=== PATIENT | female | born 1995 | race Caucasian/White ===

== ENCOUNTER 2016-08-19 17:11 | Emergency (ER) | payer OTHER ==
[~2016-08-19] VITALS: Ht 160 cm; Wt 95.7 kg
[~2016-08-19 17:11] MED LIST: ALLERGY MED PO; AMOXICILLIN500 MG PO; AMOXIL500 MG PO; ANUSOL-HC25 MG R; BACTRIM DS 8001 TA1 PO; BIRTH CONTROL1 EAC1 PO; BROMPHENIRAMIN118 M1 PO; CETIRIZINE HYDR10 MG PO; CHLORASEPTIC SP20 M1 PO; CLEOCIN150 MG PO; COLACE100 MG PO; DIFLUCAN150 MG PO; FLUTICASON0.05 MG/AC NAS; HEMORRHOIDAL RC; HYDROCODONE BIT1 T11 PO; IRON325 M1 PO; LORTAB 480 ML480 ML; MOBIC7.5 MG PO; MONISTAT 7 CREA45 GM PO; MOTRIN400 MG PO; MOTRIN600 MG PO; MOTRIN800 MG PO; Motrin,Rufen800 MG PO; NAPROSYN500 MG PO; NKHM; PEN-VEE K500 MG PO; PREDNICOT20 MG PO; PROTONIX40 MG PO; TYLENOL500 MG PO; ZOFRAN ODT4 MG PO; ZOFRAN ODT4 MG SL; Zofran4 MG PO
[2016-08-19] MEDS ORDERED: OMEPRAZOLE MAGN20 MG PO (17:24)
[2016-08-19 18:02] LABS: BASO % 0.3 % (0.0-1.0); EOS # 0.1 10*3/uL (0.0-0.4); EOS % 1.9 % (1.0-4.0); HEMATOCRIT 40.7 % (37.0-47.0); HEMOGLOBIN 13.6 g/dl (12.0-16.0); LYMPH # 2.2 10*3/uL (1.3-4.4); LYMPH % 32.2 % (27.0-41.0); MEAN CELL VOLUME 83.7 fl (81.0-99.0); MEAN CORPUSCULAR HGB CONC 33.4 g/dl (33.0-37.0); MEAN PLATELET VOLUME 9.1 fl (9.6-12.3); MONO # 0.4 10*3/uL (0.1-1.0); MONO % 6.2 % (3.0-9.0); NEUT % 59.1 % (47.0-73.0); PLATELET COUNT AUTOMATED 273 10*3/uL (130-400); RED BLOOD COUNT 4.86 10*6/uL (4.10-5.10); RED CELL DISTRI WIDTH 12.9 % (0-14.5); WHITE BLOOD COUNT 6.8 10*3/uL (4.8-10.8)
[2016-08-19 18:18] LABS: ALBUMIN 3.5 gm/dl (3.1-4.5); ALKALINE PHOSPHATASE 63 U/L (45-117); BILIRUBIN, TOTAL 0.5 mg/dl (0.2-1.0); BUN 12 mg/dl (7-24); CARBON DIOXIDE 28 mmol/L (21-32); CHLORIDE 104 mmol/L (98-107); EST GLOM FILT AFRICAN AMERICAN > 60 ml/min; GLUCOSE 86 mg/dL (65-99); POTASSIUM 4.4 mmol/L (3.5-5.1); SGOT/AST 11 IU/L (3-35); SGPT/ALT 20 U/L (12-78); SODIUM 142 mmol/L (136-145); TOTAL PROTEIN 6.4 gm/dL (6.4-8.2)
[2016-08-19 18:32] LABS: BILIRUBIN NEGATIVE (NEGATIVE); BLOOD NEGATIVE (NEGATIVE); CLARITY CLEAR (CLEAR); COLOR YELLOW (YELLOW); GLUCOSE NEGATIVE (NEGATIVE); KETONE NEGATIVE (NEGATIVE); LEUKO ESTERASE NEGATIVE (NEGATIVE); NITRITE NEGATIVE (NEGATIVE); PROTEIN NEGATIVE (NEGATIVE); SPECIFIC GRAVITY 1.015 (1.005-1.030); UROBILINOGEN 0.2 E.U./dl (0.2-1.0)
[2016-08-19 18:39] LABS: BACTERIA TRACE; EPITHELIAL CELLS TNTC; URINE REFLEX COMMENT NO (NO)
[2016-08-19] MEDS ORDERED: ZOFRAN ODT4 MG SL (19:10)
[2016-08-19] MEDS ORDERED: BENTYL10 MG PO (19:10)
== END 2016-08-19 19:18 | disposition home or self-care (01) ==
LOC: ED 17:11
PROVIDERS: Physician Assistant
DX: K21.9 Gastro-esophageal reflux disease without esophagitis (principal); R11.0 Nausea

== ENCOUNTER 2017-03-11 11:02 | Emergency (ER) | payer OTHER ==
[~2017-03-11] VITALS: Ht 160 cm; Wt 89.8 kg
[~2017-03-11 11:02] MED LIST changes: +BENTYL10 MG PO; +OMEPRAZOLE MAGN20 MG PO
[2017-03-11 11:28] VITALS: BP 142/107
[2017-03-11 11:47] LABS: BILIRUBIN 1+ (NEGATIVE); BLOOD NEGATIVE (NEGATIVE); CLARITY CLOUDY (CLEAR); COLOR YELLOW (YELLOW); GLUCOSE NEGATIVE (NEGATIVE); KETONE NEGATIVE (NEGATIVE); LEUKO ESTERASE 1+ (NEGATIVE); NITRITE NEGATIVE (NEGATIVE); SPECIFIC GRAVITY 1.015 (1.005-1.030); UROBILINOGEN 0.2 E.U./dl (0.2-1.0)
[2017-03-11 11:52] LABS: HEMOGLOBIN 14.8 g/dl (12.0-16.0); MEAN CELL VOLUME 82.9 fl (81.0-99.0); MEAN CORPUSCULAR HGB 27.9 pg (27.0-31.0); MEAN CORPUSCULAR HGB CONC 33.6 g/dl (33.0-37.0); MEAN PLATELET VOLUME 9.4 fl (9.6-12.3); PLATELET COUNT AUTOMATED 207 10*3/uL (130-400); RED BLOOD COUNT 5.31 10*6/uL (4.10-5.10); RED CELL DISTRI WIDTH 13.5 % (0-14.5)
[2017-03-11 12:00] LABS: EPITHELIAL CELLS 31-40
[2017-03-11 12:01] LABS: BACTERIA TRACE
[2017-03-11 12:06] LABS: ALBUMIN 3.4 gm/dl (3.1-4.5); ALKALINE PHOSPHATASE 83 U/L (45-117); BUN 17 mg/dl (7-24); CHLORIDE 105 mmol/L (98-107); CREATININE 1.01 mg/dL (0.55-1.02); LIPASE 120 U/L (73-393); POTASSIUM 3.9 mmol/L (3.5-5.1); SGOT/AST 19 IU/L (3-35); SGPT/ALT 24 U/L (12-78); SODIUM 138 mmol/L (136-145)
[2017-03-11 12:09] LABS: TOTAL CELLS COUNTED 100 #CELLS
[2017-03-11 12:10] LABS: PLATELET SUFFICIENCY NORMAL (NORMAL)
[2017-03-11] MEDS ORDERED: ZOFRAN ODT4 MG SL (12:53)
[2017-03-11] MEDS ORDERED: ANUSOL-HC25 MG R (12:53)
[2017-03-11] MEDS ORDERED: MACROBID100 M1 PO (12:53)
== END 2017-03-11 14:08 | disposition home or self-care (01) ==
LOC: ED 11:02
PROVIDERS: Nurse Practitioner Family
DX: N39.0 Urinary tract infection, site not specified (principal); K52.9 Noninfective gastroenteritis and colitis, unspecified; Z79.899 Other long term (current) drug therapy

== ENCOUNTER 2017-05-28 09:45 | Inpatient (IN) | payer OTHER ==
[~2017-05-28] VITALS: Ht 157.4 cm; Wt 93.6 kg
--- NOTE | ~2017-05-28 | O ---
[place], [place] OPERATIVE NOTE NAME: MADHAV ASENCIO [facility] #: [id number] UNIT #: [id number] ROOM: 411 DOCTOR: ARITS JUAREZ MD BIRTHDATE: [birth year] DOS: 05/29/2017 PREOPERATIVE DIAGNOSIS: Acute cholecystitis. POSTOPERATIVE DIAGNOSIS: Symptomatic gallstones. PROCEDURE: Laparoscopic cholecystectomy. SURGEON: Artis Juarez MD BATTERY STARTER: JOSE EDUARDO. ANESTHESIA: General with endotracheal intubation. INDICATIONS: This is a 21-year-old lady with a history of right upper quadrant pain for the past few days and who had an ultrasound, CAT scan and HIDA scan that revealed possible gallstones as well as acute cholecystitis. It was decided to take the patient to the operating room for the above-mentioned procedure. The procedure and its complications were explained to the patient in detail preoperatively. Complications that were discussed included but were not limited to bleeding, infection, hematoma/seroma/abscess formation, prolonged postoperative pain, damage to underlying vital structures, biloma formation, inadvertent injury to the common bile duct and incisional hernia formation. She agreed to proceed. DESCRIPTION OF PROCEDURE: After identifying the patient, the patient was brought to the operating suite and laid in the supine position. After induction of general anesthesia, the parts were then painted and draped in the usual sterile fashion and a time-out procedure was called. An incision was made below the umbilicus in a transverse fashion. The skin and the subcutaneous tissue were incised in the line of the incision. The fascia was incised and 2 stay sutures with 0 Vicryl were taken on either side. The peritoneum was opened and a 10 mm Stephy port was introduced into the peritoneal cavity. A pneumoperitoneum was created. Under direct vision, an epigastric incision of 10 mm and two 5 mm incisions were made in the right upper quadrant and appropriate size ports were introduced. The gallbladder was retracted superiorly and laterally. The cystic duct and the cystic artery were meticulously dissected until the critical view of safety was obtained and the triangle of Calot was identified. Thereafter, each of these structures were clipped 3 times and cut between the first and the second clip. The gallbladder was then removed from the bed of the gallbladder and placed in an EndoCatch bag and sent for histopathological diagnosis after it was removed from the peritoneal cavity. Hemostasis was achieved in the liver bed with the help of electrocautery and the area was irrigated. After hemostasis was confirmed, the right upper quadrant and epigastric ports were removed and there was no bleeding seen. The umbilical port was also removed and the pneumoperitoneum was decompressed. The 2 stay sutures were tied together and an additional 0 Vicryl stitch was taken in order to approximate the fascia. Local anesthesia (1% plain lidocaine) was injected on all the 4 incisions and they were then approximated with the help of 4-0 Vicryl in a subcuticular running fashion. Dressing was placed. The patient [place], [place] OPERATIVE NOTE NAME: MADHAV ASENCIO UNIT #: [id number] ROOM: 411 DOCTOR: ARTIS JUAREZ MD BIRTHDATE: [birth year] tolerated the procedure well and was extubated uneventfully and brought back to the recovery room in stable fashion. There were no complications. Dr. Artis Juarez, the attending surgeon, was present throughout the operating case. Artis Juarez MD CM:OPRECORD:OPERATIVE NOTE [id number] ARTIS JUAREZ MD 05/29/17 1053 interface
[~2017-05-28 09:45] MED LIST changes: +MACROBID100 M1 PO
[2017-05-28 10:11] VITALS: BP 130/86
[2017-05-28 10:52] LABS: BASO % 0.3 % (0.0-1.0); EOS # 0.1 10*3/uL (0.0-0.4); EOS % 1.5 % (1.0-4.0); HEMATOCRIT 42.5 % (37.0-47.0); HEMOGLOBIN 14.2 g/dl (12.0-16.0); LYMPH # 3.2 10*3/uL (1.3-4.4); LYMPH % 33.5 % (27.0-41.0); MEAN CELL VOLUME 83.7 fl (81.0-99.0); MEAN CORPUSCULAR HGB CONC 33.4 g/dl (33.0-37.0); MEAN PLATELET VOLUME 8.6 fl (9.6-12.3); MONO # 0.5 10*3/uL (0.1-1.0); MONO % 5.7 % (3.0-9.0); NEUT # 5.5 10*3/uL (2.3-7.9); NEUT % 58.8 % (47.0-73.0); PLATELET COUNT AUTOMATED 301 10*3/uL (130-400); RED BLOOD COUNT 5.08 10*6/uL (4.10-5.10); RED CELL DISTRI WIDTH 13.3 % (0-14.5); WHITE BLOOD COUNT 9.4 10*3/uL (4.8-10.8)
[2017-05-28 11:08] LABS: ALBUMIN 3.7 gm/dl (3.1-4.5); ALKALINE PHOSPHATASE 94 U/L (45-117); BUN 16 mg/dl (7-24); CHLORIDE 104 mmol/L (98-107); CREATININE 0.84 mg/dL (0.55-1.02); LIPASE 204 U/L (73-393); POTASSIUM 4.1 mmol/L (3.5-5.1); SGOT/AST 11 IU/L (3-35); SGPT/ALT 22 U/L (12-78); SODIUM 139 mmol/L (136-145); TOTAL PROTEIN 7.3 gm/dL (6.4-8.2)
[2017-05-28 11:14] LABS: BETA-HCG, QUANT < 1.0 mIU/mL (1-3)
[2017-05-28 11:27] LABS: BILIRUBIN NEGATIVE (NEGATIVE); BLOOD NEGATIVE (NEGATIVE); CLARITY CLOUDY (CLEAR); COLOR YELLOW (YELLOW); GLUCOSE NEGATIVE (NEGATIVE); KETONE NEGATIVE (NEGATIVE); LEUKO ESTERASE NEGATIVE (NEGATIVE); NITRITE NEGATIVE (NEGATIVE); SPECIFIC GRAVITY 1.015 (1.005-1.030)
[2017-05-28 11:35] LABS: BACTERIA TRACE; EPITHELIAL CELLS 31-40; MUCOUS 1+
[2017-05-28] MEDS ORDERED: OMEPRAZOLE40 MG PO (13:30)
[2017-05-28] MEDS ORDERED: CITALOPRAM HYDR20 MG PO (13:30)
[2017-05-28] MEDS ORDERED: ZYRTEC10 MG PO (14:09)
[2017-05-28 16:00] VITALS: BP 113/76
[2017-05-28 20:00] VITALS: BP 115/65
[2017-05-29] VITALS (9 sets, daily range): BP systolic 112–142; BP diastolic 57–84
[2017-05-29 07:13] LABS: BASO % 0.3 % (0.0-1.0); EOS # 0.1 10*3/uL (0.0-0.4); HEMATOCRIT 39.6 % (37.0-47.0); HEMOGLOBIN 13.1 g/dl (12.0-16.0); LYMPH # 2.7 10*3/uL (1.3-4.4); LYMPH % 38.6 % (27.0-41.0); MEAN CELL VOLUME 86.3 fl (81.0-99.0); MEAN CORPUSCULAR HGB 28.5 pg (27.0-31.0); MEAN CORPUSCULAR HGB CONC 33.1 g/dl (33.0-37.0); MEAN PLATELET VOLUME 8.7 fl (9.6-12.3); MONO # 0.4 10*3/uL (0.1-1.0); MONO % 5.9 % (3.0-9.0); NEUT # 3.7 10*3/uL (2.3-7.9); NEUT % 53.1 % (47.0-73.0); PLATELET COUNT AUTOMATED 233 10*3/uL (130-400); RED BLOOD COUNT 4.59 10*6/uL (4.10-5.10); RED CELL DISTRI WIDTH 13.3 % (0-14.5); WHITE BLOOD COUNT 6.9 10*3/uL (4.8-10.8)
[2017-05-29 08:11] LABS: ALBUMIN 3.3 gm/dl (3.1-4.5); ALKALINE PHOSPHATASE 79 U/L (45-117); BUN 13 mg/dl (7-24); CHLORIDE 103 mmol/L (98-107); CHOLESTEROL 191 mg/dL (<200); CREATININE 0.69 mg/dL (0.55-1.02); HDL CHOLESTEROL 44 mg/dl (40-60); LDL CHOLESTEROL 119 mg/dL (9-159); POTASSIUM 3.8 mmol/L (3.5-5.1); SGOT/AST 11 IU/L (3-35); SGPT/ALT 18 U/L (12-78); SODIUM 139 mmol/L (136-145); TOTAL PROTEIN 6.6 gm/dL (6.4-8.2); TRIGLYCERIDES 142 mg/dl (<150); VLDL CHOLESTEROL 28 mg/dL (6-40)
[2017-05-29 08:13] LABS: FREE T4 1.07 ng/dl (0.76-1.46)
[2017-05-29 09:43] LABS: VITAMIN D, 25-HYDROXY 26.4 ng/mL (30-100)
== END 2017-05-29 16:08 | disposition home or self-care (01) | DRG 419 ==
LOC: ED 09:45 → 4E 12:56 → EDHOLD 12:56 → 4E 13:15
PROVIDERS: Emergency Medicine; Registered Nurse
PROC: 0FT44ZZ Resection of Gallbladder, Percutaneous Endoscopic Approach (ICD-10-PCS; principal; 2017-05-29)
DX: K80.00 Calculus of gallbladder with acute cholecystitis without obstruction (principal); F32.9 Major depressive disorder, single episode, unspecified; K21.9 Gastro-esophageal reflux disease without esophagitis; Z87.440 Personal history of urinary (tract) infections; Z83.3 Family history of diabetes mellitus; Z82.49 Family history of ischemic heart disease and other diseases of the circulatory system; Z79.899 Other long term (current) drug therapy

== ENCOUNTER 2017-08-10 18:08 | Emergency (ER) | payer OTHER ==
[~2017-08-10] VITALS: Ht 157.4 cm; Wt 95.7 kg
[~2017-08-10 18:08] MED LIST changes: +CITALOPRAM HYDR20 MG PO; +OMEPRAZOLE40 MG PO; +ZYRTEC10 MG PO
[2017-08-10 18:39] LABS: BILIRUBIN NEGATIVE (NEGATIVE); BLOOD 3+ (NEGATIVE); CLARITY CLOUDY (CLEAR); COLOR RED (YELLOW); GLUCOSE NEGATIVE (NEGATIVE); KETONE TRACE (NEGATIVE); LEUKO ESTERASE 2+ (NEGATIVE); NITRITE POSITIVE (NEGATIVE); SPECIFIC GRAVITY 1.025 (1.005-1.030)
[2017-08-10 18:43] LABS: BACTERIA 4+; RBC TNTC rbc/hpf (0-2); WBC TNTC wbc/hpf (0-5)
[2017-08-10 20:25] LABS: BASO % 0.2 % (0.0-1.0); EOS # 0.1 10*3/uL (0.0-0.4); EOS % 1.4 % (1.0-4.0); HEMOGLOBIN 12.8 g/dl (12.0-16.0); LYMPH # 1.5 10*3/uL (1.3-4.4); LYMPH % 22.9 % (27.0-41.0); MEAN CELL VOLUME 83.9 fl (81.0-99.0); MEAN CORPUSCULAR HGB 27.5 pg (27.0-31.0); MEAN CORPUSCULAR HGB CONC 32.8 g/dl (33.0-37.0); MEAN PLATELET VOLUME 9.2 fl (9.6-12.3); MONO # 0.4 10*3/uL (0.1-1.0); MONO % 6.4 % (3.0-9.0); NEUT # 4.5 10*3/uL (2.3-7.9); NEUT % 68.9 % (47.0-73.0); PLATELET COUNT AUTOMATED 172 10*3/uL (130-400); RED BLOOD COUNT 4.65 10*6/uL (4.10-5.10); RED CELL DISTRI WIDTH 13.4 % (0-14.5); WHITE BLOOD COUNT 6.6 10*3/uL (4.8-10.8)
[2017-08-10] MEDS ORDERED: AMINOPHYLLIN200 MG PO (20:33)
[2017-08-10 20:45] LABS: ALBUMIN 3.1 gm/dl (3.1-4.5); ALKALINE PHOSPHATASE 65 U/L (45-117); BUN 10 mg/dl (7-24); CHLORIDE 108 mmol/L (98-107); CREATININE 0.65 mg/dL (0.55-1.02); POTASSIUM 3.7 mmol/L (3.5-5.1); SGOT/AST 14 IU/L (3-35); SGPT/ALT 18 U/L (12-78); SODIUM 140 mmol/L (136-145); TOTAL PROTEIN 6.8 gm/dL (6.4-8.2)
[2017-08-10 21:03] VITALS: BP 109/60
== END 2017-08-10 21:11 | disposition home or self-care (01) ==
LOC: ED 18:08
PROVIDERS: Nurse Practitioner
DX: N39.0 Urinary tract infection, site not specified (principal); J40 Bronchitis, not specified as acute or chronic; R31.9 Hematuria, unspecified; Z90.89 Acquired absence of other organs; Z79.899 Other long term (current) drug therapy

== ENCOUNTER 2017-10-17 20:59 | Emergency (ER) | payer OTHER ==
[~2017-10-17] VITALS: Ht 157.4 cm; Wt 91.6 kg
[~2017-10-17 20:59] MED LIST changes: +AMINOPHYLLIN200 MG PO
[2017-10-17 21:45] LABS: BASO % 0.2 % (0.0-1.0); EOS # 0.1 10*3/uL (0.0-0.4); EOS % 1.1 % (1.0-4.0); HEMATOCRIT 39.8 % (37.0-47.0); HEMOGLOBIN 13.4 g/dl (12.0-16.0); LYMPH % 20.8 % (27.0-41.0); MEAN CELL VOLUME 83.8 fl (81.0-99.0); MEAN CORPUSCULAR HGB 28.2 pg (27.0-31.0); MEAN CORPUSCULAR HGB CONC 33.7 g/dl (33.0-37.0); MEAN PLATELET VOLUME 9.5 fl (9.6-12.3); MONO # 0.6 10*3/uL (0.1-1.0); MONO % 6.1 % (3.0-9.0); NEUT % 71.5 % (47.0-73.0); PLATELET COUNT AUTOMATED 234 10*3/uL (130-400); RED BLOOD COUNT 4.75 10*6/uL (4.10-5.10); RED CELL DISTRI WIDTH 13.5 % (0-14.5); WHITE BLOOD COUNT 9.7 10*3/uL (4.8-10.8)
[2017-10-17 22:02] LABS: ALBUMIN 3.7 gm/dl (3.1-4.5); ALKALINE PHOSPHATASE 86 U/L (45-117); BUN 10 mg/dl (7-24); CHLORIDE 105 mmol/L (98-107); CREATININE 0.78 mg/dL (0.55-1.02); LIPASE 119 U/L (73-393); POTASSIUM 3.6 mmol/L (3.5-5.1); SGOT/AST 17 IU/L (3-35); SGPT/ALT 23 U/L (12-78); SODIUM 136 mmol/L (136-145); TOTAL PROTEIN 7.1 gm/dL (6.4-8.2)
[2017-10-17 22:05] LABS: B-hCG (QUALITATIVE) NEGATIVE (NEGATIVE)
[2017-10-17 22:57] VITALS: BP 134/95
== END 2017-10-18 00:30 | disposition short-term general hospital (02) ==
LOC: ED 20:59
PROVIDERS: Emergency Medicine
DX: S01.511A Laceration without foreign body of lip, initial encounter (principal); S01.112A Laceration without foreign body of left eyelid and periocular area, initial encounter; S36.039A Unspecified laceration of spleen, initial encounter; K21.9 Gastro-esophageal reflux disease without esophagitis; Z90.89 Acquired absence of other organs; Z79.899 Other long term (current) drug therapy; V89.2XXA Person injured in unspecified motor-vehicle accident, traffic, initial encounter; Y93.55 Activity, bike riding; Y92.413 State road as the place of occurrence of the external cause; Y99.9 Unspecified external cause status

== ENCOUNTER → 2017-11-04 | Outpatient (CLI) | payer OTHER | END | disposition home or self-care (01) | LOC: CT 10:44 | DX: E66.9 Obesity, unspecified (principal); Z87.891 Personal history of nicotine dependence; Z90.49 Acquired absence of other specified parts of digestive tract ==

== ENCOUNTER 2018-04-13 15:39 | Emergency (ER) | payer OTHER ==
[~2018-04-13] VITALS: Ht 160 cm; Wt 93.0 kg
[2018-04-13 15:45] VITALS: BP 118/46
== END 2018-04-13 16:11 | disposition home or self-care (01) ==
LOC: ED 15:39
DX: L50.9 Urticaria, unspecified (principal); Z79.899 Other long term (current) drug therapy

== ENCOUNTER 2018-06-21 23:47 | Emergency (ER) | payer OTHER ==
--- NOTE | ~2018-06-21 | EKG ---
[place], [place] ELECTROCARDIOGRAM REPORT NAME: MADHAV ASENCIO UNIT #: [id number] ROOM: DOCTOR: EPIPHANY DRAFT REPORT BIRTHDATE: [birth year] [facility] Test Date: 2018-06-21 Test Time: 23:54:55 Pat Name: MADHAV ASENCIO Department: er Room: 1 Gender: F [employer] Safety Engineer: : 1995 Requested By: NICOLASA CHAHAL Order Number: [id number] Reading MD: Benson Cornell MD Measurements Intervals [place] Rate: 97 P: 48 LA: 156 QRS: -15 QRSD: 90 T: 12 QT: 351 QTc: 446 Interpretive Statements Sinus rhythm Borderline left axis deviation Baseline wander in lead(s) V2 Electronically Signed On 06-22-2018 20:02:09 PST by Benson Cornell MD CM:EKGRPT:ELECTROCARDIOGRAM REPORT [id number] NICOLASA HERNANDES DRAFT REPORT NICOLASA CHAHAL DO
[2018-06-22 00:28] LABS: BILIRUBIN NEGATIVE (NEGATIVE); BLOOD NEGATIVE (NEGATIVE); CLARITY SL CLOUDY (CLEAR); COLOR YELLOW (YELLOW); GLUCOSE NEGATIVE (NEGATIVE); KETONE NEGATIVE (NEGATIVE); LEUKO ESTERASE NEGATIVE (NEGATIVE); NITRITE NEGATIVE (NEGATIVE)
[2018-06-22 00:39] LABS: BASO % 0.4 % (0.0-1.0); EOS # 0.2 10*3/uL (0.0-0.4); EOS % 2.3 % (1.0-4.0); HEMATOCRIT 38.8 % (37.0-47.0); HEMOGLOBIN 12.8 g/dl (12.0-16.0); LYMPH # 2.5 10*3/uL (1.3-4.4); MEAN CELL VOLUME 83.3 fl (81.0-99.0); MEAN CORPUSCULAR HGB 27.5 pg (27.0-31.0); MEAN PLATELET VOLUME 8.9 fl (9.6-12.3); MONO # 0.7 10*3/uL (0.1-1.0); MONO % 7.4 % (3.0-9.0); NEUT # 6.1 10*3/uL (2.3-7.9); NEUT % 63.6 % (47.0-73.0); PLATELET COUNT AUTOMATED 272 10*3/uL (130-400); RED BLOOD COUNT 4.66 10*6/uL (4.10-5.10); RED CELL DISTRI WIDTH 13.1 % (0-14.5); WHITE BLOOD COUNT 9.6 10*3/uL (4.8-10.8)
[2018-06-22 00:40] LABS: URINE AMPHETAMINES < 1000 (1000ng/ml); URINE BARBITURATES < 200 (200ng/ml); URINE BENZODIAZEPINES < 200 (200ng/ml); URINE CANNABINOIDS (THC) < 50 (50ng/ml); URINE COCAINE < 300 (300ng/ml); URINE METHADONE < 300 (300ng/ml); URINE OPIATES < 300 (300ng/ml); URINE PHENCYCLIDINE < 25 (25ng/ml)
[2018-06-22 00:48] LABS: EPITHELIAL CELLS 45-50
[2018-06-22 00:49] LABS: BACTERIA 1+
[2018-06-22 00:50] VITALS: BP 123/70
[2018-06-22 00:54] LABS: ALBUMIN 2.9 gm/dl (3.1-4.5); ALKALINE PHOSPHATASE 94 U/L (45-117); BUN 8 mg/dl (7-24); CHLORIDE 106 mmol/L (98-107); LIPASE 120 U/L (73-393); POTASSIUM 3.6 mmol/L (3.5-5.1); SGOT/AST 16 IU/L (3-35); SGPT/ALT 29 U/L (12-78); SODIUM 139 mmol/L (136-145); TOTAL PROTEIN 6.6 gm/dL (6.4-8.2)
[2018-06-22] MEDS ORDERED: AUGMENTIN 875875 MG PO (02:21)
[2018-06-22] MEDS ORDERED: Tobrex Ophth S2.5 ML OPH (02:45)
== END 2018-06-22 03:03 | disposition home or self-care (01) ==
LOC: ED 23:47
PROVIDERS: Emergency Medicine
DX: B34.9 Viral infection, unspecified (principal); H10.9 Unspecified conjunctivitis; J01.90 Acute sinusitis, unspecified; R53.83 Other fatigue; R55 Syncope and collapse; R42 Dizziness and giddiness; K21.9 Gastro-esophageal reflux disease without esophagitis; Z79.899 Other long term (current) drug therapy

== ENCOUNTER → 2018-10-20 | Outpatient (CLI) | payer OTHER ==
[~2018-10-20] MED LIST changes: +AUGMENTIN 875875 MG PO; +CEPHALEXIN500 M1 PO; +MYCOLOG CREAM 115 GM T; +NYSTATIN CREAM15 GM T; +Tobrex Ophth S2.5 ML OPH
== END | disposition home or self-care (01) ==
LOC: MRI 13:22
DX: R51 Headache (principal)

== ENCOUNTER 2019-01-10 20:33 | Emergency (ER) | payer OTHER ==
[~2019-01-10] VITALS: Ht 157.4 cm; Wt 90.7 kg
[~2019-01-10 20:33] MED LIST changes: -CEPHALEXIN500 M1 PO; -MYCOLOG CREAM 115 GM T; -NYSTATIN CREAM15 GM T
[2019-01-10 20:36] VITALS: BP 134/84
[2019-01-10] MEDS ORDERED: NYSTATIN CREAM15 GM T (20:54)
[2019-01-10] MEDS ORDERED: CEPHALEXIN500 M1 PO (20:54)
== END 2019-01-10 21:02 | disposition home or self-care (01) ==
LOC: ED 20:33
DX: L73.9 Follicular disorder, unspecified (principal); B37.9 Candidiasis, unspecified; Z79.899 Other long term (current) drug therapy; Z88.6 Allergy status to analgesic agent

== ENCOUNTER 2019-01-21 17:36 | Emergency (ER) | payer OTHER ==
[~2019-01-21] VITALS: Ht 160 cm; Wt 99.8 kg
[~2019-01-21 17:36] MED LIST changes: +CEPHALEXIN500 M1 PO; +NYSTATIN CREAM15 GM T
[2019-01-21 17:37] VITALS: BP 118/88
[2019-01-21 19:24] LABS: BILIRUBIN NEGATIVE (NEGATIVE); BLOOD NEGATIVE (NEGATIVE); CLARITY SL CLOUDY (CLEAR); COLOR YELLOW (YELLOW); GLUCOSE NEGATIVE (NEGATIVE); KETONE NEGATIVE (NEGATIVE); LEUKO ESTERASE NEGATIVE (NEGATIVE); NITRITE NEGATIVE (NEGATIVE); SPECIFIC GRAVITY 1.015 (1.005-1.030); UROBILINOGEN 0.2 E.U./dl (0.2-1.0)
[2019-01-21 19:34] LABS: BACTERIA TRACE; EPITHELIAL CELLS TNTC; MUCOUS 1+
[2019-01-21] MEDS ORDERED: MYCOLOG CREAM 115 GM T (19:55)
== END 2019-01-21 20:00 | disposition home or self-care (01) ==
LOC: ED 17:36
PROVIDERS: Physician Assistant
DX: L30.4 Erythema intertrigo (principal); Z88.5 Allergy status to narcotic agent; Z79.2 Long term (current) use of antibiotics; Z79.899 Other long term (current) drug therapy

== ENCOUNTER 2019-06-16 17:11 | Emergency (ER) | payer OTHER ==
[~2019-06-16] VITALS: Ht 160 cm; Wt 101.6 kg
[~2019-06-16 17:11] MED LIST changes: +MYCOLOG CREAM 115 GM T
[2019-06-16 17:18] VITALS: BP 144/79
[2019-06-16] MEDS ORDERED: ZITHROMAX250 MG PO (19:17)
[2019-06-16] MEDS ORDERED: PREDNISONE20 M1 PO (19:17)
== END 2019-06-16 19:42 | disposition home or self-care (01) ==
LOC: ED 17:11
DX: J06.9 Acute upper respiratory infection, unspecified (principal); J45.909 Unspecified asthma, uncomplicated; K21.9 Gastro-esophageal reflux disease without esophagitis; Z88.6 Allergy status to analgesic agent; Z79.899 Other long term (current) drug therapy

== ENCOUNTER 2019-06-24 17:35 | Emergency (ER) | payer OTHER ==
[~2019-06-24] VITALS: Ht 160 cm; Wt 103.9 kg
[~2019-06-24 17:35] MED LIST changes: +PREDNISONE20 M1 PO; +ZITHROMAX250 MG PO
[2019-06-24 17:41] VITALS: BP 104/57
[2019-06-24] MEDS ORDERED: NYSTATIN CREAM15 GM T (18:15)
[2019-06-24] MEDS ORDERED: KEFLEX500 M1 PO (18:15)
== END 2019-06-24 19:22 | disposition home or self-care (01) ==
LOC: ED 17:35
DX: L73.9 Follicular disorder, unspecified (principal); B37.2 Candidiasis of skin and nail; J45.909 Unspecified asthma, uncomplicated; K21.9 Gastro-esophageal reflux disease without esophagitis; Z88.8 Allergy status to other drugs, medicaments and biological substances; Z79.2 Long term (current) use of antibiotics; Z79.899 Other long term (current) drug therapy

== ENCOUNTER 2019-07-12 10:10 | Emergency (ER) | payer OTHER ==
[~2019-07-12] VITALS: Ht 160 cm; Wt 103.9 kg
[~2019-07-12 10:10] MED LIST changes: +KEFLEX500 M1 PO
[2019-07-12 10:14] VITALS: BP 130/99
[2019-07-12] MEDS ORDERED: CLOTRIMAZOLE T (10:52)
== END 2019-07-12 10:55 | disposition home or self-care (01) ==
LOC: ED 10:10
DX: B35.6 Tinea cruris (principal); J45.909 Unspecified asthma, uncomplicated; G89.29 Other chronic pain; K21.9 Gastro-esophageal reflux disease without esophagitis; Z88.5 Allergy status to narcotic agent; Z79.2 Long term (current) use of antibiotics; Z79.899 Other long term (current) drug therapy

== ENCOUNTER → 2019-09-24 | Outpatient (CLI) | payer OTHER ==
[~2019-09-24] MED LIST changes: +CLOTRIMAZOLE T
[2019-09-24 14:20] LABS: BILIRUBIN NEGATIVE (NEGATIVE); BLOOD 3+ (NEGATIVE); CLARITY SL CLOUDY (CLEAR); COLOR YELLOW (YELLOW); GLUCOSE NEGATIVE (NEGATIVE); KETONE NEGATIVE (NEGATIVE); LEUKO ESTERASE 1+ (NEGATIVE); NITRITE NEGATIVE (NEGATIVE); SPECIFIC GRAVITY 1.005 (1.005-1.030); UROBILINOGEN 0.2 E.U./dl (0.2-1.0)
[2019-09-24 14:22] LABS: BASO % 0.4 % (0.0-1.0); EOS # 0.2 10*3/uL (0.0-0.4); EOS % 2.2 % (1.0-4.0); HEMATOCRIT 45.9 % (37.0-47.0); LYMPH % 29.5 % (27.0-41.0); MEAN CELL VOLUME 84.4 fl (81.0-99.0); MEAN CORPUSCULAR HGB 28.1 pg (27.0-31.0); MEAN CORPUSCULAR HGB CONC 33.3 g/dl (33.0-37.0); MEAN PLATELET VOLUME 8.8 fl (9.6-12.3); MONO # 0.3 10*3/uL (0.1-1.0); MONO % 4.1 % (3.0-9.0); NEUT # 4.3 10*3/uL (2.3-7.9); NEUT % 63.5 % (47.0-73.0); PLATELET COUNT AUTOMATED 309 10*3/uL (130-400); RED BLOOD COUNT 5.44 10*6/uL (4.10-5.10); WHITE BLOOD COUNT 6.8 10*3/uL (4.8-10.8)
[2019-09-24 14:31] LABS: BACTERIA 2+; RBC 0-2 rbc/hpf (0-2)
[2019-09-24 14:51] LABS: ALBUMIN 3.7 gm/dl (3.1-4.5); ALKALINE PHOSPHATASE 93 U/L (45-117); BUN 10 mg/dl (7-24); CHLORIDE 105 mmol/L (98-107); CHOLESTEROL 220 mg/dL (<200); CREATININE 0.92 mg/dL (0.55-1.02); GAMMA GLUTAMYL TRANSPEPTIDASE 13 U/L (5-55); HDL CHOLESTEROL 40 mg/dl (40-60); IRON 74 ug/dL (50-170); LDL CHOLESTEROL 126 mg/dL (9-159); POTASSIUM 3.7 mmol/L (3.5-5.1); SGOT/AST 18 IU/L (3-35); SGPT/ALT 28 U/L (12-78); SODIUM 137 mmol/L (136-145); TOTAL IRON BINDING CAPACITY 309 ug/dl (250-450); TOTAL PROTEIN 7.7 gm/dL (6.4-8.2); TRIGLYCERIDES 272 mg/dl (<150); VLDL CHOLESTEROL 54 mg/dL (6-40)
[2019-09-24 14:57] LABS: B-hCG (QUALITATIVE) NEGATIVE (NEGATIVE)
[2019-09-24 14:59] LABS: BETA-HCG, QUANT < 1.0 mIU/mL (1-3)
[2019-09-24 15:13] LABS: FERRITIN 53.2 ng/mL (10.0-291.0)
[2019-09-25 06:03] LABS: FOLLICLE STIMULATING HORMONE 8.5 mIU/mL (.); LUTEINIZING HORMONE 17.4 mIU/mL (.); PROGESTERONE 0.2 ng/mL (.); PROLACTIN 13.9 ng/mL (4.8-23.3); SEX HORMONE BINDING GLOBULIN 27.8 nmol/L (24.6-122.0)
[2019-09-25 22:05] LABS: INSULIN-LIKE GROWTH FACTOR-1 119 ng/mL (93-342)
[2019-09-26 00:02] LABS: TESTOSTERONE FREE, (DIRECT) 3.1 pg/mL (0.0-4.2)
[2019-09-29 07:46] LABS: DEHYDROEPIANDROSTERONE 407 ng/dL (31-701)
== END ==
LOC: LAB 13:44
PROVIDERS: Family Medicine
DX: E55.9 Vitamin D deficiency, unspecified (principal); R79.89 Other specified abnormal findings of blood chemistry; E78.5 Hyperlipidemia, unspecified; R53.83 Other fatigue

== ENCOUNTER 2019-10-31 16:37 | Emergency (ER) | payer OTHER ==
[~2019-10-31] VITALS: Ht 160 cm; Wt 102.1 kg
[2019-10-31 16:44] VITALS: BP 140/80
[2019-10-31 17:33] LABS: BACTERIA TRACE; BILIRUBIN NEGATIVE (NEGATIVE); BLOOD 3+ (NEGATIVE); CLARITY SL CLOUDY (CLEAR); COLOR YELLOW (YELLOW); GLUCOSE NEGATIVE (NEGATIVE); KETONE NEGATIVE (NEGATIVE); LEUKO ESTERASE 1+ (NEGATIVE); NITRITE NEGATIVE (NEGATIVE); UROBILINOGEN 0.2 E.U./dl (0.2-1.0)
[2019-10-31 17:33] LABS: BASO % 0.3 % (0.0-1.0); EOS # 0.1 10*3/uL (0.0-0.4); EOS % 1.9 % (1.0-4.0); HEMATOCRIT 39.7 % (37.0-47.0); LYMPH # 2.1 10*3/uL (1.3-4.4); LYMPH % 31.5 % (27.0-41.0); MEAN CELL VOLUME 87.1 fl (81.0-99.0); MEAN CORPUSCULAR HGB 27.9 pg (27.0-31.0); MONO # 0.4 10*3/uL (0.1-1.0); MONO % 6.5 % (3.0-9.0); NEUT # 4.1 10*3/uL (2.3-7.9); NEUT % 59.5 % (47.0-73.0); PLATELET COUNT AUTOMATED 232 10*3/uL (130-400); RED BLOOD COUNT 4.56 10*6/uL (4.10-5.10); RED CELL DISTRI WIDTH 13.2 % (0-14.5); WHITE BLOOD COUNT 6.8 10*3/uL (4.8-10.8)
[2019-10-31 17:47] LABS: ALBUMIN 3.2 gm/dl (3.1-4.5); ALKALINE PHOSPHATASE 71 U/L (45-117); BUN 12 mg/dl (7-24); CHLORIDE 109 mmol/L (98-107); CREATININE 0.69 mg/dL (0.55-1.02); POTASSIUM 4.2 mmol/L (3.5-5.1); SGOT/AST 19 IU/L (3-35); SGPT/ALT 45 U/L (12-78); SODIUM 142 mmol/L (136-145); THYROXINE (T4) TOTAL 6.5 ug/dl (4.8-13.9); TOTAL PROTEIN 6.7 gm/dL (6.4-8.2)
[2019-10-31 17:55] LABS: T3 UPTAKE 29 % (31-39)
== END 2019-10-31 18:08 ==
LOC: ED 16:37
PROVIDERS: Nurse Practitioner Family
DX: N94.6 Dysmenorrhea, unspecified (principal); K21.9 Gastro-esophageal reflux disease without esophagitis; Z88.5 Allergy status to narcotic agent; Z79.899 Other long term (current) drug therapy

== ENCOUNTER → 2019-11-19 | Outpatient (CLI) | payer OTHER ==
[~2019-11-19] MED LIST changes: +DICYCLOMINE HCL10 MG PO
[2019-11-19 12:34] LABS: BASO % 0.3 % (0.0-1.0); EOS # 0.1 10*3/uL (0.0-0.4); EOS % 1.8 % (1.0-4.0); HEMATOCRIT 41.4 % (37.0-47.0); LYMPH # 2.4 10*3/uL (1.3-4.4); LYMPH % 33.7 % (27.0-41.0); MEAN CELL VOLUME 85.9 fl (81.0-99.0); MEAN CORPUSCULAR HGB 27.6 pg (27.0-31.0); MEAN CORPUSCULAR HGB CONC 32.1 g/dl (33.0-37.0); MEAN PLATELET VOLUME 9.1 fl (9.6-12.3); MONO # 0.6 10*3/uL (0.1-1.0); MONO % 7.9 % (3.0-9.0); NEUT # 4.1 10*3/uL (2.3-7.9); PLATELET COUNT AUTOMATED 225 10*3/uL (130-400); RED BLOOD COUNT 4.82 10*6/uL (4.10-5.10); RED CELL DISTRI WIDTH 13.3 % (0-14.5); WHITE BLOOD COUNT 7.2 10*3/uL (4.8-10.8)
== END | disposition home or self-care (01) ==
LOC: LAB 11:27
PROVIDERS: Nurse Practitioner Women's Health
DX: N93.9 Abnormal uterine and vaginal bleeding, unspecified (principal); R53.83 Other fatigue

== ENCOUNTER → 2019-11-23 | Outpatient (CLI) | payer OTHER | END | disposition home or self-care (01) | LOC: US 02:01 | DX: D25.9 Leiomyoma of uterus, unspecified (principal); N83.202 Unspecified ovarian cyst, left side; N93.9 Abnormal uterine and vaginal bleeding, unspecified ==

== ENCOUNTER 2019-11-28 19:24 | Emergency (ER) | payer OTHER ==
[~2019-11-28] VITALS: Ht 160 cm; Wt 106.6 kg
[~2019-11-28 19:24] MED LIST changes: -DICYCLOMINE HCL10 MG PO
[2019-11-28 21:05] LABS: BILIRUBIN NEGATIVE (NEGATIVE); BLOOD 3+ (NEGATIVE); CLARITY CLOUDY (CLEAR); COLOR ORANGE (YELLOW); GLUCOSE NEGATIVE (NEGATIVE); KETONE NEGATIVE (NEGATIVE); LEUKO ESTERASE TRACE (NEGATIVE); NITRITE NEGATIVE (NEGATIVE); PH 7.5 (5.0-9.0); SPECIFIC GRAVITY 1.015 (1.005-1.030); UROBILINOGEN 0.2 E.U./dl (0.2-1.0)
[2019-11-28 21:11] LABS: RBC TNTC rbc/hpf (0-2)
[2019-11-28 21:29] LABS: BASO % 0.3 % (0.0-1.0); EOS # 0.1 10*3/uL (0.0-0.4); EOS % 1.7 % (1.0-4.0); LYMPH # 2.1 10*3/uL (1.3-4.4); LYMPH % 33.4 % (27.0-41.0); MEAN CELL VOLUME 83.3 fl (81.0-99.0); MEAN CORPUSCULAR HGB 27.2 pg (27.0-31.0); MEAN CORPUSCULAR HGB CONC 32.6 g/dl (33.0-37.0); MEAN PLATELET VOLUME 9.2 fl (9.6-12.3); MONO # 0.4 10*3/uL (0.1-1.0); MONO % 6.1 % (3.0-9.0); NEUT # 3.7 10*3/uL (2.3-7.9); NEUT % 58.3 % (47.0-73.0); PLATELET COUNT AUTOMATED 282 10*3/uL (130-400); RED BLOOD COUNT 5.04 10*6/uL (4.10-5.10); RED CELL DISTRI WIDTH 13.2 % (0-14.5); WHITE BLOOD COUNT 6.4 10*3/uL (4.8-10.8)
[2019-11-28 21:45] LABS: ALBUMIN 3.6 gm/dl (3.1-4.5); ALKALINE PHOSPHATASE 78 U/L (45-117); BUN 12 mg/dl (7-24); CHLORIDE 106 mmol/L (98-107); CREATININE 0.65 mg/dL (0.55-1.02); LIPASE 97 U/L (73-393); POTASSIUM 3.8 mmol/L (3.5-5.1); SGOT/AST 11 IU/L (3-35); SGPT/ALT 22 U/L (12-78); SODIUM 137 mmol/L (136-145); TOTAL PROTEIN 7.5 gm/dL (6.4-8.2)
[2019-11-29] MEDS ORDERED: DICYCLOMINE HCL10 MG PO (04:06)
[2019-11-29 04:41] VITALS: BP 126/68
== END 2019-11-29 04:40 | disposition home or self-care (01) ==
LOC: ED 19:24
PROVIDERS: Emergency Medicine Emergency Medical Services
DX: K59.00 Constipation, unspecified (principal); J45.909 Unspecified asthma, uncomplicated; K21.9 Gastro-esophageal reflux disease without esophagitis; F17.200 Nicotine dependence, unspecified, uncomplicated; Z88.8 Allergy status to other drugs, medicaments and biological substances; Z79.899 Other long term (current) drug therapy

== ENCOUNTER 2019-12-16 11:26 | Emergency (ER) | payer OTHER ==
[~2019-12-16] VITALS: Ht 160 cm; Wt 106.6 kg
[~2019-12-16 11:26] MED LIST changes: +DICYCLOMINE HCL10 MG PO
[2019-12-16 11:33] VITALS: BP 127/67
[2019-12-16 11:59] LABS: BILIRUBIN NEGATIVE (NEGATIVE); BLOOD 3+ (NEGATIVE); CLARITY CLOUDY (CLEAR); COLOR YELLOW (YELLOW); GLUCOSE NEGATIVE (NEGATIVE); KETONE NEGATIVE (NEGATIVE)
[2019-12-16 12:00] LABS: LEUKO ESTERASE TRACE (NEGATIVE); NITRITE NEGATIVE (NEGATIVE); UROBILINOGEN 0.2 E.U./dl (0.2-1.0)
[2019-12-16 12:08] LABS: BACTERIA 1+; RBC TNTC rbc/hpf (0-2)
[2019-12-16 12:08] LABS: BASO % 0.4 % (0.0-1.0); EOS # 0.2 10*3/uL (0.0-0.4); EOS % 2.6 % (1.0-4.0); HEMATOCRIT 42.2 % (37.0-47.0); LYMPH # 2.4 10*3/uL (1.3-4.4); LYMPH % 41.4 % (27.0-41.0); MEAN CELL VOLUME 84.9 fl (81.0-99.0); MEAN CORPUSCULAR HGB CONC 31.8 g/dl (33.0-37.0); MEAN PLATELET VOLUME 9.2 fl (9.6-12.3); MONO # 0.5 10*3/uL (0.1-1.0); MONO % 7.9 % (3.0-9.0); NEUT # 2.7 10*3/uL (2.3-7.9); NEUT % 47.5 % (47.0-73.0); PLATELET COUNT AUTOMATED 295 10*3/uL (130-400); RED BLOOD COUNT 4.97 10*6/uL (4.10-5.10); RED CELL DISTRI WIDTH 13.3 % (0-14.5); WHITE BLOOD COUNT 5.7 10*3/uL (4.8-10.8)
[2019-12-16 12:24] LABS: ALBUMIN 3.4 gm/dl (3.1-4.5); ALKALINE PHOSPHATASE 66 U/L (45-117); BUN 9 mg/dl (7-24); CHLORIDE 107 mmol/L (98-107); CREATININE 0.85 mg/dL (0.55-1.02); POTASSIUM 3.8 mmol/L (3.5-5.1); SGOT/AST 8 IU/L (3-35); SGPT/ALT 18 U/L (12-78); SODIUM 139 mmol/L (136-145); TOTAL PROTEIN 7.1 gm/dL (6.4-8.2)
[2019-12-16 12:35] LABS: BETA-HCG, QUANT < 1.0 mIU/mL (1-3)
[2019-12-16] MEDS ORDERED: IBU800 MG PO (14:05)
== END 2019-12-16 14:11 | disposition home or self-care (01) ==
LOC: ED 11:26
PROVIDERS: Nurse Practitioner Family
DX: N93.9 Abnormal uterine and vaginal bleeding, unspecified (principal); K21.9 Gastro-esophageal reflux disease without esophagitis; J45.909 Unspecified asthma, uncomplicated; Z88.6 Allergy status to analgesic agent; Z79.899 Other long term (current) drug therapy

== ENCOUNTER 2020-01-28 21:14 | Emergency (ER) | payer OTHER ==
[~2020-01-28] VITALS: Ht 160 cm; Wt 114.8 kg
[~2020-01-28 21:14] MED LIST changes: +IBU800 MG PO
[2020-01-28 22:17] LABS: BASO % 0.4 % (0.0-1.0); EOS # 0.2 10*3/uL (0.0-0.4); EOS % 2.3 % (1.0-4.0); LYMPH # 2.3 10*3/uL (1.3-4.4); MEAN CELL VOLUME 85.8 fl (81.0-99.0); MEAN CORPUSCULAR HGB 27.7 pg (27.0-31.0); MEAN CORPUSCULAR HGB CONC 32.3 g/dl (33.0-37.0); MEAN PLATELET VOLUME 9.5 fl (9.6-12.3); MONO # 0.5 10*3/uL (0.1-1.0); MONO % 6.8 % (3.0-9.0); NEUT # 4.8 10*3/uL (2.3-7.9); NEUT % 61.2 % (47.0-73.0); PLATELET COUNT AUTOMATED 238 10*3/uL (130-400); RED BLOOD COUNT 4.66 10*6/uL (4.10-5.10); RED CELL DISTRI WIDTH 13.6 % (0-14.5); WHITE BLOOD COUNT 7.8 10*3/uL (4.8-10.8)
[2020-01-28 22:36] LABS: ALBUMIN 3.2 gm/dl (3.1-4.5); ALKALINE PHOSPHATASE 80 U/L (45-117); BUN 7 mg/dl (7-24); CHLORIDE 110 mmol/L (98-107); CREATININE 0.79 mg/dL (0.55-1.02); POTASSIUM 3.7 mmol/L (3.5-5.1); SGOT/AST 13 IU/L (3-35); SGPT/ALT 29 U/L (12-78); SODIUM 144 mmol/L (136-145); TOTAL PROTEIN 6.9 gm/dL (6.4-8.2)
[2020-01-28 22:42] LABS: BILIRUBIN NEGATIVE; BLOOD NEGATIVE (NEGATIVE); CLARITY CLEAR (CLEAR); COLOR YELLOW (YELLOW); GLUCOSE NEGATIVE; KETONE NEGATIVE; LEUKO ESTERASE NEGATIVE (NEGATIVE); NITRITE NEGATIVE (NEGATIVE); SPECIFIC GRAVITY 1.025 (1.001-1.030)
[2020-01-28 23:06] LABS: BACTERIA TRACE; EPITHELIAL CELLS 21-30
[2020-01-29 01:56] VITALS: BP 126/73
== END 2020-01-29 02:07 | disposition home or self-care (01) ==
LOC: ED 21:14
PROVIDERS: Emergency Medicine
DX: R60.0 Localized edema (principal); K21.9 Gastro-esophageal reflux disease without esophagitis; Z88.6 Allergy status to analgesic agent; Z79.899 Other long term (current) drug therapy

== ENCOUNTER → 2020-05-17 | Outpatient (CLI) | payer OTHER ==
[2020-05-17 15:11] LABS: BASO % 0.4 % (0.0-1.0); EOS # 0.3 10*3/uL (0.0-0.4); EOS % 3.6 % (1.0-4.0); HEMATOCRIT 43.8 % (37.0-47.0); LYMPH # 2.2 10*3/uL (1.3-4.4); LYMPH % 28.4 % (27.0-41.0); MEAN CORPUSCULAR HGB 26.5 pg (27.0-31.0); MEAN PLATELET VOLUME 9.3 fl (9.6-12.3); MONO # 0.4 10*3/uL (0.1-1.0); MONO % 4.5 % (3.0-9.0); NEUT # 4.9 10*3/uL (2.3-7.9); NEUT % 62.8 % (47.0-73.0); PLATELET COUNT AUTOMATED 310 10*3/uL (130-400); RED BLOOD COUNT 5.28 10*6/uL (4.10-5.10); RED CELL DISTRI WIDTH 13.4 % (0-14.5); RETICULOCYTE % 1.78 % (0.50-2.50); WHITE BLOOD COUNT 7.8 10*3/uL (4.8-10.8)
[2020-05-17 15:13] LABS: BILIRUBIN Negative (Negative); BLOOD 2+ (Negative); CLARITY Clear (Clear); COLOR Yellow (Yellow); GLUCOSE Negative (Negative); KETONE Negative (Negative); LEUKO ESTERASE Trace (Negative); NITRITE Negative (Negative); PH 5.5 (4.5-8.0)
[2020-05-17 15:23] LABS: BACTERIA 2+
[2020-05-17 15:52] LABS: ALBUMIN 3.6 gm/dl (3.1-4.5); ALKALINE PHOSPHATASE 95 U/L (45-117); BUN 10 mg/dl (7-24); CHLORIDE 106 mmol/L (98-107); CHOLESTEROL 204 mg/dL (<200); CREATININE 0.81 mg/dL (0.55-1.02); GAMMA GLUTAMYL TRANSPEPTIDASE 16 U/L (5-55); HDL CHOLESTEROL 44 mg/dl (40-60); IRON 41 ug/dL (50-170); LDL CHOLESTEROL 110 mg/dL (9-159); POTASSIUM 3.8 mmol/L (3.5-5.1); SGOT/AST 12 IU/L (3-35); SGPT/ALT 26 U/L (12-78); SODIUM 139 mmol/L (136-145); T3 UPTAKE 32 % (31-39); TOTAL IRON BINDING CAPACITY 343 ug/dl (250-450); TOTAL PROTEIN 7.4 gm/dL (6.4-8.2); TRIGLYCERIDES 249 mg/dl (<150); VLDL CHOLESTEROL 50 mg/dL (6-40)
[2020-05-17 15:59] LABS: THYROXINE (T4) TOTAL 6.8 ug/dl (4.8-13.9)
[2020-05-17 16:26] LABS: VITAMIN D, 25-HYDROXY 36.8 ng/mL (30-100)
[2020-05-17 16:27] LABS: FERRITIN 14.8 ng/mL (10.0-291.0)
[2020-05-18 08:08] LABS: RHEUMATOID ARTHRITIS FACTOR <10.0 IU/mL (0.0-13.9)
[2020-05-18 14:13] LABS: ANTI-DSDNA ANTIBODIES <1 IU/mL (0-9)
== END | disposition home or self-care (01) ==
LOC: LAB 14:33
PROVIDERS: ATTEND Family Medicine
DX: E55.9 Vitamin D deficiency, unspecified (principal); R53.83 Other fatigue; R79.89 Other specified abnormal findings of blood chemistry; R74.8 Abnormal levels of other serum enzymes

== ENCOUNTER → 2020-06-15 | Outpatient (CLI) | payer OTHER | END | disposition home or self-care (01) | LOC: US 14:02 | PROVIDERS: ATTEND Obstetrics & Gynecology | DX: D25.0 Submucous leiomyoma of uterus (principal); D25.1 Intramural leiomyoma of uterus ==

== ENCOUNTER 2020-07-29 14:18 | Emergency (ER) | payer OTHER ==
[~2020-07-29] VITALS: Ht 160 cm; Wt 115.7 kg
[2020-07-29 14:32] VITALS: BP 128/90
[2020-07-29 15:09] LABS: BASO % 0.4 % (0.0-1.0); EOS # 0.4 10*3/uL (0.0-0.4); EOS % 4.9 % (1.0-4.0); HEMATOCRIT 41.7 % (37.0-47.0); LYMPH # 2.1 10*3/uL (1.3-4.4); LYMPH % 28.8 % (27.0-41.0); MEAN CELL VOLUME 81.4 fl (81.0-99.0); MEAN CORPUSCULAR HGB CONC 31.9 g/dl (33.0-37.0); MONO # 0.5 10*3/uL (0.1-1.0); MONO % 7.2 % (3.0-9.0); NEUT # 4.2 10*3/uL (2.3-7.9); NEUT % 58.3 % (47.0-73.0); PLATELET COUNT AUTOMATED 278 10*3/uL (130-400); RED BLOOD COUNT 5.12 10*6/uL (4.10-5.10); RED CELL DISTRI WIDTH 13.5 % (0-14.5); WHITE BLOOD COUNT 7.1 10*3/uL (4.8-10.8)
== END 2020-07-29 16:20 | disposition home or self-care (01) ==
LOC: ED 14:18
PROVIDERS: Nurse Practitioner Family
DX: N93.8 Other specified abnormal uterine and vaginal bleeding (principal); K21.9 Gastro-esophageal reflux disease without esophagitis; J45.909 Unspecified asthma, uncomplicated; Z88.5 Allergy status to narcotic agent; Z79.899 Other long term (current) drug therapy; Z98.890 Other specified postprocedural states

== ENCOUNTER → 2021-02-14 | Outpatient (CLI) | payer OTHER ==
[2021-02-14 10:54] LABS: BASO % 0.2 % (0.0-1.0); EOS # 0.2 10*3/uL (0.0-0.4); EOS % 2.1 % (1.0-4.0); HEMATOCRIT 42.5 % (37.0-47.0); LYMPH # 2.8 10*3/uL (1.3-4.4); LYMPH % 28.9 % (27.0-41.0); MEAN CELL VOLUME 79.3 fl (81.0-99.0); MEAN CORPUSCULAR HGB 25.9 pg (27.0-31.0); MEAN CORPUSCULAR HGB CONC 32.7 g/dl (33.0-37.0); MONO # 0.5 10*3/uL (0.1-1.0); MONO % 5.3 % (3.0-9.0); NEUT # 6.1 10*3/uL (2.3-7.9); NEUT % 63.3 % (47.0-73.0); PLATELET COUNT AUTOMATED 364 10*3/uL (130-400); RED BLOOD COUNT 5.36 10*6/uL (4.10-5.10); RED CELL DISTRI WIDTH 14.7 % (0-14.5); RETICULOCYTE % 1.66 % (0.50-2.50); WHITE BLOOD COUNT 9.6 10*3/uL (4.8-10.8)
[2021-02-14 10:57] LABS: BILIRUBIN Negative (Negative); BLOOD Negative (Negative); CLARITY Clear (Clear); COLOR Yellow (Yellow); GLUCOSE Negative (Negative); KETONE Trace (Negative); LEUKO ESTERASE Trace (Negative); NITRITE Negative (Negative); SPECIFIC GRAVITY 1.025 (1.001-1.030)
[2021-02-14 11:13] LABS: BACTERIA 2+
[2021-02-14 11:24] LABS: ALBUMIN 3.3 gm/dl (3.1-4.5); ALKALINE PHOSPHATASE 83 U/L (45-117); BUN 13 mg/dl (7-24); CHLORIDE 106 mmol/L (98-107); CHOLESTEROL 221 mg/dL (<200); CREATININE 0.88 mg/dL (0.55-1.02); GAMMA GLUTAMYL TRANSPEPTIDASE 8 U/L (5-55); IRON 37 ug/dL (50-170); LDL CHOLESTEROL 116 mg/dL (9-159); POTASSIUM 3.7 mmol/L (3.5-5.1); SGOT/AST 11 IU/L (3-35); SGPT/ALT 20 U/L (12-78); SODIUM 138 mmol/L (136-145); TOTAL IRON BINDING CAPACITY 418 ug/dl (250-450); TOTAL PROTEIN 7.4 gm/dL (6.4-8.2); TRIGLYCERIDES 296 mg/dl (<150)
[2021-02-14 11:45] LABS: FERRITIN 11.5 ng/mL (10.0-291.0); VITAMIN D, 25-HYDROXY 45.6 ng/mL (30-100)
== END | disposition home or self-care (01) ==
LOC: LAB 10:37
PROVIDERS: ATTEND Family Medicine
DX: R79.89 Other specified abnormal findings of blood chemistry (principal); R53.83 Other fatigue; R74.8 Abnormal levels of other serum enzymes; E55.9 Vitamin D deficiency, unspecified

== ENCOUNTER 2021-07-25 09:41 | Emergency (ER) | payer OTHER ==
[~2021-07-25] VITALS: Ht 160 cm; Wt 111.1 kg
[2021-07-25 10:06] VITALS: BP 117/84
== END 2021-07-25 14:03 | disposition home or self-care (01) ==
LOC: ED 09:41
DX: J06.9 Acute upper respiratory infection, unspecified (principal); Z20.822 Contact with and (suspected) exposure to COVID-19; Z88.8 Allergy status to other drugs, medicaments and biological substances; Z79.899 Other long term (current) drug therapy; Z90.89 Acquired absence of other organs

== ENCOUNTER → 2021-09-27 | Outpatient (CLI) | payer OTHER ==
[2021-09-27 13:33] LABS: BASO % 0.1 % (0.0-1.0); EOS # 0.1 10*3/uL (0.0-0.4); EOS % 1.7 % (1.0-4.0); HEMATOCRIT 40.7 % (37.0-47.0); LYMPH # 2.2 10*3/uL (1.3-4.4); LYMPH % 29.7 % (27.0-41.0); MEAN CELL VOLUME 83.2 fl (81.0-99.0); MEAN CORPUSCULAR HGB 27.2 pg (27.0-31.0); MEAN CORPUSCULAR HGB CONC 32.7 g/dl (33.0-37.0); MEAN PLATELET VOLUME 9.1 fl (9.6-12.3); MONO # 0.4 10*3/uL (0.1-1.0); MONO % 4.8 % (3.0-9.0); NEUT # 4.7 10*3/uL (2.3-7.9); NEUT % 63.4 % (47.0-73.0); PLATELET COUNT AUTOMATED 283 10*3/uL (130-400); RED BLOOD COUNT 4.89 10*6/uL (4.10-5.10); RED CELL DISTRI WIDTH 13.8 % (0-14.5); WHITE BLOOD COUNT 7.5 10*3/uL (4.8-10.8)
[2021-09-27 13:34] LABS: BILIRUBIN Negative (Negative); BLOOD Negative (Negative); CLARITY Clear (Clear); COLOR Yellow (Yellow); GLUCOSE Negative (Negative); KETONE Trace (Negative); LEUKO ESTERASE Negative (Negative); NITRITE Negative (Negative); SPECIFIC GRAVITY >= 1.030 (1.001-1.030); UROBILINOGEN 0.2 E.U./dl (0.0-1.0)
[2021-09-27 13:53] LABS: ALKALINE PHOSPHATASE 70 U/L (45-117); BUN 14 mg/dl (7-24); CHLORIDE 105 mmol/L (98-107); CHOLESTEROL 222 mg/dL (<200); CREATININE 0.85 mg/dL (0.55-1.02); GAMMA GLUTAMYL TRANSPEPTIDASE 9 U/L (5-55); IRON 45 ug/dL (50-170); LDL CHOLESTEROL 109 mg/dL (9-159); POTASSIUM 3.5 mmol/L (3.5-5.1); SGOT/AST 10 IU/L (3-35); SGPT/ALT 16 U/L (12-78); SODIUM 138 mmol/L (136-145); TOTAL IRON BINDING CAPACITY 356 ug/dl (250-450); TRIGLYCERIDES 313 mg/dl (<150)
[2021-09-27 14:00] LABS: BACTERIA 1+
[2021-09-27 14:13] LABS: FERRITIN 17.4 ng/mL (10.0-291.0); VITAMIN D, 25-HYDROXY 42.6 ng/mL (30-100)
== END | disposition home or self-care (01) ==
LOC: LAB 12:50
PROVIDERS: ATTEND Family Medicine
DX: E78.5 Hyperlipidemia, unspecified (principal); R74.8 Abnormal levels of other serum enzymes; R53.83 Other fatigue; R79.89 Other specified abnormal findings of blood chemistry; E55.9 Vitamin D deficiency, unspecified

== ENCOUNTER → 2022-01-18 | Outpatient (CLI) | payer OTHER | END | disposition home or self-care (01) | LOC: RAD 09:24 | PROVIDERS: ATTEND Family Medicine | DX: M48.061 Spinal stenosis, lumbar region without neurogenic claudication (principal) ==

== ENCOUNTER → 2022-01-26 | Outpatient (CLI) | payer OTHER | END | disposition home or self-care (01) | LOC: CT 08:34 | PROVIDERS: ATTEND Family Medicine | DX: S06.0X0A Concussion without loss of consciousness, initial encounter (principal); X58.XXXA Exposure to other specified factors, initial encounter; Y93.9 Activity, unspecified; Y92.89 Other specified places as the place of occurrence of the external cause; Y99.8 Other external cause status ==

== ENCOUNTER → 2022-02-21 | Outpatient (CLI) | payer OTHER | END | disposition home or self-care (01) | LOC: MRI 02:33 | PROVIDERS: ATTEND Family Medicine | DX: M51.24 Other intervertebral disc displacement, thoracic region (principal) ==

== ENCOUNTER → 2022-05-22 | Outpatient (CLI) | payer OTHER ==
[2022-05-22 15:23] LABS: BASO % 0.3 % (0.0-1.0); EOS # 0.1 10*3/uL (0.0-0.4); EOS % 2.2 % (1.0-4.0); HEMATOCRIT 43.9 % (37.0-47.0); LYMPH # 2.1 10*3/uL (1.3-4.4); LYMPH % 36.6 % (27.0-41.0); MEAN CELL VOLUME 83.3 fl (81.0-99.0); MEAN CORPUSCULAR HGB 27.7 pg (27.0-31.0); MEAN CORPUSCULAR HGB CONC 33.3 g/dl (33.0-37.0); MEAN PLATELET VOLUME 8.9 fl (9.6-12.3); MONO # 0.4 10*3/uL (0.1-1.0); MONO % 6.3 % (3.0-9.0); NEUT # 3.2 10*3/uL (2.3-7.9); NEUT % 54.3 % (47.0-73.0); PLATELET COUNT AUTOMATED 296 10*3/uL (130-400); RED BLOOD COUNT 5.27 10*6/uL (4.10-5.10); RED CELL DISTRI WIDTH 13.4 % (0-14.5); RETICULOCYTE % 2.11 % (0.50-2.50); WHITE BLOOD COUNT 5.9 10*3/uL (4.8-10.8)
[2022-05-22 15:28] LABS: BILIRUBIN Negative (Negative); BLOOD Negative (Negative); CLARITY Clear (Clear); COLOR Yellow (Yellow); GLUCOSE Negative (Negative); KETONE Trace (Negative); LEUKO ESTERASE Negative (Negative); NITRITE Negative (Negative); PH 7.5 (4.5-8.0); SPECIFIC GRAVITY 1.025 (1.001-1.030)
[2022-05-22 15:40] LABS: ALKALINE PHOSPHATASE 82 U/L (46-116); BUN 8 mg/dl (9-23); CHLORIDE 103 mmol/L (98-107); CHOLESTEROL 187 mg/dL (<200); CREATININE 0.64 mg/dL (0.55-1.02); GAMMA GLUTAMYL TRANSPEPTIDASE 17 U/L (0-73); LDL CHOLESTEROL 111 mg/dL (9-159); SGPT/ALT 34 U/L (10-49); SODIUM 140 mmol/L (136-145); THYROID STIM HORMONE (HS) 1.216 uIU/ml (0.550-4.780); TOTAL PROTEIN 6.8 gm/dL (6.0-8.0); TRIGLYCERIDES 145 mg/dl (<150)
[2022-05-22 15:42] LABS: VITAMIN D, 25-HYDROXY 46.3 ng/mL (30-100)
[2022-05-22 15:43] LABS: BACTERIA 4+
[2022-05-22 15:44] LABS: HYALINE CAST 0-2
== END | disposition home or self-care (01) ==
LOC: LAB 14:44
PROVIDERS: ATTEND Family Medicine
DX: R79.89 Other specified abnormal findings of blood chemistry (principal); R53.83 Other fatigue; E78.5 Hyperlipidemia, unspecified; R74.8 Abnormal levels of other serum enzymes; E55.9 Vitamin D deficiency, unspecified

== ENCOUNTER → 2022-07-03 | Outpatient (CLI) | payer OTHER ==
[2022-07-03 15:19] LABS: B-hCG (QUALITATIVE) NEGATIVE (NEGATIVE); BETA-HCG, QUANT < 3.0 mIU/mL (0-10)
[2022-07-04 08:07] LABS: SEX HORMONE BINDING GLOBULIN 34.3 nmol/L (24.6-122.0)
== END | disposition home or self-care (01) ==
LOC: LAB 14:15
PROVIDERS: ATTEND Family Medicine
DX: E78.5 Hyperlipidemia, unspecified (principal); E55.9 Vitamin D deficiency, unspecified; R79.89 Other specified abnormal findings of blood chemistry; R53.83 Other fatigue; R74.8 Abnormal levels of other serum enzymes

== ENCOUNTER 2022-09-09 14:30 | Emergency (ER) | payer OTHER ==
[~2022-09-09] VITALS: Ht 160 cm; Wt 112.0 kg
[2022-09-09 14:40] VITALS: BP 120/70
[2022-09-09 15:09] LABS: BASO % 0.5 % (0.0-1.0); EOS # 0.2 10*3/uL (0.0-0.4); EOS % 2.5 % (1.0-4.0); HEMATOCRIT 44.9 % (37.0-47.0); LYMPH # 2.9 10*3/uL (1.3-4.4); LYMPH % 37.4 % (27.0-41.0); MEAN CORPUSCULAR HGB 28.2 pg (27.0-31.0); MEAN CORPUSCULAR HGB CONC 32.7 g/dl (33.0-37.0); MONO # 0.6 10*3/uL (0.1-1.0); MONO % 7.1 % (3.0-9.0); NEUT % 52.4 % (47.0-73.0); PLATELET COUNT AUTOMATED 291 10*3/uL (130-400); RED BLOOD COUNT 5.22 10*6/uL (4.10-5.10); WHITE BLOOD COUNT 7.7 10*3/uL (4.8-10.8)
[2022-09-09 15:34] LABS: ALKALINE PHOSPHATASE 84 U/L (46-116); BUN 13 mg/dl (9-23); CHLORIDE 98 mmol/L (98-107); POTASSIUM 3.7 mmol/L (3.4-5.1); SGPT/ALT 27 U/L (10-49); TOTAL PROTEIN 7.1 gm/dL (6.0-8.0)
[2022-09-09] MEDS ORDERED: PREDNISONE50 MG PO (17:13)
== END 2022-09-09 17:27 | disposition home or self-care (01) ==
LOC: ED 14:30
PROVIDERS: Internal Medicine
DX: M54.6 Pain in thoracic spine (principal); Z88.5 Allergy status to narcotic agent; Z90.89 Acquired absence of other organs; Z98.890 Other specified postprocedural states

== ENCOUNTER → 2022-09-19 | Outpatient (CLI) | payer OTHER ==
[~2022-09-19] MED LIST changes: +PREDNISONE50 MG PO
== END | disposition home or self-care (01) ==
LOC: ORTHO 01:15
PROVIDERS: ATTEND Orthopaedic Surgery
DX: M25.551 Pain in right hip (principal)

== ENCOUNTER → 2022-10-05 | Outpatient (CLI) | payer OTHER ==
[2022-10-05 12:22] LABS: BASO % 0.5 % (0.0-1.0); EOS # 0.2 10*3/uL (0.0-0.4); EOS % 3.5 % (1.0-4.0); HEMATOCRIT 42.9 % (37.0-47.0); LYMPH # 2.4 10*3/uL (1.3-4.4); LYMPH % 41.4 % (27.0-41.0); MEAN CELL VOLUME 84.1 fl (81.0-99.0); MEAN CORPUSCULAR HGB CONC 33.3 g/dl (33.0-37.0); MEAN PLATELET VOLUME 8.9 fl (9.6-12.3); MONO # 0.4 10*3/uL (0.1-1.0); MONO % 6.8 % (3.0-9.0); NEUT # 2.7 10*3/uL (2.3-7.9); NEUT % 47.6 % (47.0-73.0); PLATELET COUNT AUTOMATED 299 10*3/uL (130-400); RED CELL DISTRI WIDTH 13.1 % (0-14.5); WHITE BLOOD COUNT 5.7 10*3/uL (4.8-10.8)
[2022-10-05 12:24] LABS: BILIRUBIN Negative (Negative); BLOOD 1+ (Negative); CLARITY Clear (Clear); COLOR Yellow (Yellow); GLUCOSE Negative (Negative); KETONE Negative (Negative); LEUKO ESTERASE Negative (Negative); NITRITE Negative (Negative); PH 5.5 (4.5-8.0); UROBILINOGEN 0.2 E.U./dl (0.0-1.0)
[2022-10-05 12:38] LABS: EPITHELIAL CELLS 31-40; WBC 0-2 wbc/hpf (0-5)
[2022-10-05 12:39] LABS: BACTERIA 2+
[2022-10-05 13:26] LABS: ALKALINE PHOSPHATASE 75 U/L (46-116); BETA-HCG, QUANT < 3.0 mIU/mL (0-10); BUN 12 mg/dl (9-23); CHLORIDE 104 mmol/L (98-107); CHOLESTEROL 199 mg/dL (<200); GAMMA GLUTAMYL TRANSPEPTIDASE 19 U/L (0-73); LDL CHOLESTEROL 106 mg/dL (9-159); POTASSIUM 3.9 mmol/L (3.4-5.1); SGPT/ALT 32 U/L (10-49); T3 UPTAKE 22.4 % (22.4-36.7); THYROID STIM HORMONE (HS) 2.877 uIU/ml (0.550-4.780); THYROXINE (T4) TOTAL 7.2 ug/dl (4.5-10.9); TOTAL PROTEIN 6.5 gm/dL (6.0-8.0); TRIGLYCERIDES 231 mg/dl (<150); VITAMIN D, 25-HYDROXY 44.6 ng/mL (30-100)
[2022-10-05 13:27] LABS: B-hCG (QUALITATIVE) NEGATIVE (NEGATIVE)
[2022-10-08 13:06] LABS: TESTOSTERONE FREE, (DIRECT) 1.8 pg/mL (0.0-4.2)
== END | disposition home or self-care (01) ==
LOC: LAB 11:50
PROVIDERS: ATTEND Family Medicine
DX: E78.5 Hyperlipidemia, unspecified (principal); E55.9 Vitamin D deficiency, unspecified; R79.89 Other specified abnormal findings of blood chemistry; R53.83 Other fatigue; R74.8 Abnormal levels of other serum enzymes

== ENCOUNTER 2022-10-23 02:47 | Emergency (ER) | payer OTHER ==
[2022-10-23 03:05] VITALS: BP 147/80
[2022-10-23] MEDS ORDERED: IBU800 M2 PO (03:51)
== END 2022-10-23 04:26 | disposition home or self-care (01) ==
LOC: ED 02:47
DX: M25.521 Pain in right elbow (principal); K21.9 Gastro-esophageal reflux disease without esophagitis; J45.909 Unspecified asthma, uncomplicated; Z88.5 Allergy status to narcotic agent; Z90.89 Acquired absence of other organs; Z98.890 Other specified postprocedural states

== ENCOUNTER 2022-12-14 21:25 | Emergency (ER) | payer OTHER ==
[~2022-12-14] VITALS: Ht 160 cm; Wt 111.1 kg
[~2022-12-14 21:25] MED LIST changes: +IBU800 M2 PO
[2022-12-14 22:02] VITALS: BP 120/84
[2022-12-14 22:49] LABS: BASO % 0.5 % (0.0-1.0); EOS # 0.2 10*3/uL (0.0-0.4); HEMATOCRIT 41.3 % (37.0-47.0); LYMPH # 2.4 10*3/uL (1.3-4.4); LYMPH % 30.6 % (27.0-41.0); MEAN CELL VOLUME 84.8 fl (81.0-99.0); MEAN CORPUSCULAR HGB 28.5 pg (27.0-31.0); MEAN CORPUSCULAR HGB CONC 33.7 g/dl (33.0-37.0); MEAN PLATELET VOLUME 8.9 fl (9.6-12.3); MONO # 0.5 10*3/uL (0.1-1.0); MONO % 6.4 % (3.0-9.0); NEUT # 4.8 10*3/uL (2.3-7.9); NEUT % 60.4 % (47.0-73.0); PLATELET COUNT AUTOMATED 266 10*3/uL (130-400); RED BLOOD COUNT 4.87 10*6/uL (4.10-5.10); RED CELL DISTRI WIDTH 13.3 % (0-14.5)
[2022-12-14 23:07] LABS: BUN 9 mg/dl (9-23); CHLORIDE 103 mmol/L (98-107); POTASSIUM 3.8 mmol/L (3.4-5.1)
[2022-12-14 23:36] LABS: BILIRUBIN 1+ (Negative); BLOOD 3+ (Negative); CLARITY Turbid (Clear); COLOR Red (Yellow); GLUCOSE Negative (Negative); KETONE Negative (Negative); LEUKO ESTERASE 1+ (Negative); NITRITE Negative (Negative)
[2022-12-14 23:48] LABS: BACTERIA 1+; RBC TNTC rbc/hpf (0-2)
[2022-12-15] MEDS ORDERED: CIPRO500 MG PO (00:21)
== END 2022-12-15 00:34 | disposition home or self-care (01) ==
LOC: ED 21:25
PROVIDERS: Internal Medicine
DX: N89.8 Other specified noninflammatory disorders of vagina (principal); R10.30 Lower abdominal pain, unspecified; N39.0 Urinary tract infection, site not specified; E66.9 Obesity, unspecified; Z88.5 Allergy status to narcotic agent; Z79.899 Other long term (current) drug therapy; Z96.22 Myringotomy tube(s) status; Z68.30 Body mass index [BMI] 30.0-30.9, adult

== ENCOUNTER → 2023-04-09 | Outpatient (CLI) | payer OTHER ==
[~2023-04-09] MED LIST changes: +CIPRO500 MG PO
[2023-04-09 15:00] LABS: HEMATOCRIT 40.3 % (37.0-47.0); MEAN CELL VOLUME 84.8 fl (81.0-99.0); MEAN CORPUSCULAR HGB 28.6 pg (27.0-31.0); MEAN CORPUSCULAR HGB CONC 33.7 g/dl (33.0-37.0); MEAN PLATELET VOLUME 8.9 fl (9.6-12.3); RED BLOOD COUNT 4.75 10*6/uL (4.10-5.10); RED CELL DISTRI WIDTH 13.5 % (0-14.5); WHITE BLOOD COUNT 7.2 10*3/uL (4.8-10.8)
== END | disposition home or self-care (01) ==
LOC: LAB 14:50
PROVIDERS: ATTEND Obstetrics & Gynecology
DX: N93.8 Other specified abnormal uterine and vaginal bleeding (principal)

== ENCOUNTER 2023-04-29 17:40 | Emergency (ER) | payer OTHER ==
[~2023-04-29] VITALS: Ht 160 cm; Wt 111.1 kg
[2023-04-29 18:03] VITALS: BP 125/93
[2023-04-29 20:28] LABS: BASO % 0.2 % (0.0-1.0); EOS # 0.1 10*3/uL (0.0-0.4); EOS % 1.4 % (1.0-4.0); HEMATOCRIT 46.6 % (37.0-47.0); LYMPH # 2.8 10*3/uL (1.3-4.4); LYMPH % 34.4 % (27.0-41.0); MEAN CELL VOLUME 84.4 fl (81.0-99.0); MEAN CORPUSCULAR HGB 27.9 pg (27.0-31.0); MONO # 0.6 10*3/uL (0.1-1.0); MONO % 6.8 % (3.0-9.0); NEUT # 4.7 10*3/uL (2.3-7.9); NEUT % 57.1 % (47.0-73.0); PLATELET COUNT AUTOMATED 342 10*3/uL (130-400); RED BLOOD COUNT 5.52 10*6/uL (4.10-5.10); RED CELL DISTRI WIDTH 13.2 % (0-14.5); WHITE BLOOD COUNT 8.1 10*3/uL (4.8-10.8)
[2023-04-29 20:32] LABS: BILIRUBIN Negative (Negative); BLOOD 3+ (Negative); CLARITY Clear (Clear); COLOR Yellow (Yellow); GLUCOSE Negative (Negative); KETONE Trace (Negative); LEUKO ESTERASE Trace (Negative); NITRITE Negative (Negative); PH 7.5 (4.5-8.0); SPECIFIC GRAVITY 1.025 (1.001-1.030)
[2023-04-29 20:40] LABS: BACTERIA 1+; RBC TNTC rbc/hpf (0-2)
[2023-04-29 20:54] LABS: ALKALINE PHOSPHATASE 87 U/L (46-116); BUN 10 mg/dl (9-23); CHLORIDE 107 mmol/L (98-107); SGPT/ALT 31 U/L (5-49); TOTAL PROTEIN 7.2 gm/dL (6.0-8.0)
[2023-04-29 20:56] LABS: BETA-HCG, QUANT < 3.0 mIU/mL (3-10)
== END 2023-04-29 21:17 | disposition home or self-care (01) ==
LOC: ED 17:40
PROVIDERS: Physician Assistant Medical
DX: N93.9 Abnormal uterine and vaginal bleeding, unspecified (principal); R10.30 Lower abdominal pain, unspecified; R10.2 Pelvic and perineal pain; K21.9 Gastro-esophageal reflux disease without esophagitis; J45.909 Unspecified asthma, uncomplicated; Z88.5 Allergy status to narcotic agent; Z98.890 Other specified postprocedural states; Z90.89 Acquired absence of other organs

== ENCOUNTER → 2023-05-04 | Outpatient (CLI) | payer OTHER | END | disposition home or self-care (01) | LOC: US 00:36 | PROVIDERS: ATTEND Nurse Practitioner Women's Health | DX: D25.1 Intramural leiomyoma of uterus (principal); N92.6 Irregular menstruation, unspecified ==

== ENCOUNTER → 2023-08-13 | Outpatient (CLI) | payer OTHER | END | disposition home or self-care (01) | LOC: RAD 14:44 | PROVIDERS: ATTEND Family Medicine | DX: M25.562 Pain in left knee (principal); W19.XXXD Unspecified fall, subsequent encounter ==

== ENCOUNTER 2023-08-25 16:10 | Emergency (ER) | payer OTHER ==
[~2023-08-25] VITALS: Ht 160 cm; Wt 107.5 kg
[2023-08-25 16:47] VITALS: BP 133/86
[2023-08-25] MEDS ORDERED: CLINDAMYCIN HCL 300 MG CAPSULE PO ONE (16:55)
[2023-08-25] MEDS ORDERED: Acetaminophen/Oxycodone 5 MG/325 MG TABLET PO ONE (16:55)
[2023-08-25] MEDS ORDERED: MELOXICAM15 MG PO (17:03)
[2023-08-25] MEDS ORDERED: CLINDAMYCIN HC300 MG PO (17:03)
== END 2023-08-25 17:08 | disposition home or self-care (01) ==
LOC: ED 16:10
DX: L03.317 Cellulitis of buttock (principal); K21.9 Gastro-esophageal reflux disease without esophagitis; J45.909 Unspecified asthma, uncomplicated; Z88.5 Allergy status to narcotic agent; Z90.89 Acquired absence of other organs; Z98.890 Other specified postprocedural states

== ENCOUNTER → 2023-08-27 | Outpatient (CLI) | payer OTHER ==
[~2023-08-27] MED LIST changes: +CLINDAMYCIN HC300 MG PO; +MELOXICAM15 MG PO
== END | disposition home or self-care (01) ==
LOC: MRI 01:02
PROVIDERS: ATTEND Family Medicine
DX: M79.89 Other specified soft tissue disorders (principal); S83.92XD Sprain of unspecified site of left knee, subsequent encounter; X58.XXXD Exposure to other specified factors, subsequent encounter

== ENCOUNTER → 2023-11-08 | Outpatient (CLI) | payer OTHER ==
[2023-11-08 10:32] LABS: BASO % 0.3 % (0.0-1.0); EOS # 0.1 10*3/uL (0.0-0.4); EOS % 2.3 % (1.0-4.0); HEMATOCRIT 45.6 % (37.0-47.0); LYMPH # 2.5 10*3/uL (1.3-4.4); LYMPH % 41.2 % (27.0-41.0); MEAN CELL VOLUME 86.2 fl (81.0-99.0); MEAN CORPUSCULAR HGB 28.2 pg (27.0-31.0); MEAN CORPUSCULAR HGB CONC 32.7 g/dl (33.0-37.0); MEAN PLATELET VOLUME 9.1 fl (9.6-12.3); MONO # 0.4 10*3/uL (0.1-1.0); MONO % 6.2 % (3.0-9.0); NEUT % 49.8 % (47.0-73.0); PLATELET COUNT AUTOMATED 240 10*3/uL (130-400); RED BLOOD COUNT 5.29 10*6/uL (4.10-5.10); RED CELL DISTRI WIDTH 12.9 % (0-14.5)
[2023-11-08 10:39] LABS: BILIRUBIN Negative (Negative); BLOOD Negative (Negative); CLARITY Cloudy (Clear); COLOR Yellow (Yellow); GLUCOSE Negative (Negative); KETONE Negative (Negative); LEUKO ESTERASE Negative (Negative); NITRITE Negative (Negative)
[2023-11-08 11:17] LABS: ALKALINE PHOSPHATASE 78 U/L (46-116); BUN 9 mg/dl (9-23); CHLORIDE 102 mmol/L (98-107); CHOLESTEROL 251 mg/dL (<200); GAMMA GLUTAMYL TRANSPEPTIDASE 18 U/L (0-73); LDL CHOLESTEROL 138 mg/dL (9-159); POTASSIUM 3.5 mmol/L (3.4-5.1); SGPT/ALT 52 U/L (5-49); T3 UPTAKE 23.3 % (22.4-36.7); THYROXINE (T4) TOTAL 5.6 ug/dl (4.5-10.9); TOTAL PROTEIN 6.8 gm/dL (6.0-8.0); TRIGLYCERIDES 334 mg/dl (<150)
[2023-11-08 11:25] LABS: VITAMIN D, 25-HYDROXY 32.3 ng/mL (30-100)
[2023-11-08 11:37] LABS: BACTERIA 2+; EPITHELIAL CELLS TNTC
== END | disposition home or self-care (01) ==
LOC: LAB 09:47
PROVIDERS: ATTEND Family Medicine
DX: R79.89 Other specified abnormal findings of blood chemistry (principal); R53.83 Other fatigue; E78.5 Hyperlipidemia, unspecified; E55.9 Vitamin D deficiency, unspecified

== ENCOUNTER 2023-11-15 18:25 | Emergency (ER) | payer OTHER ==
[~2023-11-15] VITALS: Wt 106.1 kg
[2023-11-15 18:51] VITALS: BP 119/83
[2023-11-15] MEDS ORDERED: PREDNISONE20 M1 PO (18:57)
[2023-11-15] MEDS ORDERED: methylPREDNISolone sod succ 125 MG VIAL IM ONE (19:00)
== END 2023-11-15 19:17 | disposition home or self-care (01) ==
LOC: ED 18:25
DX: L23.7 Allergic contact dermatitis due to plants, except food (principal); K21.9 Gastro-esophageal reflux disease without esophagitis; J45.909 Unspecified asthma, uncomplicated; Z88.5 Allergy status to narcotic agent; Z90.89 Acquired absence of other organs; Z98.890 Other specified postprocedural states

== ENCOUNTER 2023-11-18 19:04 | Emergency (ER) | payer OTHER ==
[~2023-11-18] VITALS: Ht 160 cm; Wt 108.4 kg
[2023-11-18 19:14] VITALS: BP 130/97
[2023-11-18 20:02] LABS: BASO % 0.2 % (0.0-1.0); EOS # 0.1 10*3/uL (0.0-0.4); EOS % 0.8 % (1.0-4.0); HEMATOCRIT 46.8 % (37.0-47.0); LYMPH # 2.1 10*3/uL (1.3-4.4); LYMPH % 18.4 % (27.0-41.0); MEAN CELL VOLUME 85.4 fl (81.0-99.0); MEAN CORPUSCULAR HGB 28.3 pg (27.0-31.0); MEAN CORPUSCULAR HGB CONC 33.1 g/dl (33.0-37.0); MEAN PLATELET VOLUME 8.9 fl (9.6-12.3); MONO # 0.4 10*3/uL (0.1-1.0); MONO % 3.6 % (3.0-9.0); NEUT # 8.9 10*3/uL (2.3-7.9); NEUT % 76.7 % (47.0-73.0); PLATELET COUNT AUTOMATED 335 10*3/uL (130-400); RED BLOOD COUNT 5.48 10*6/uL (4.10-5.10); RED CELL DISTRI WIDTH 12.8 % (0-14.5); WHITE BLOOD COUNT 11.6 10*3/uL (4.8-10.8)
[2023-11-18 20:17] LABS: BUN 16 mg/dl (9-23); CHLORIDE 103 mmol/L (98-107); POTASSIUM 3.5 mmol/L (3.4-5.1)
[2023-11-18 20:36] LABS: BILIRUBIN Negative (Negative); BLOOD Negative (Negative); CLARITY Clear (Clear); COLOR Yellow (Yellow); GLUCOSE Negative (Negative); KETONE Negative (Negative); LEUKO ESTERASE Negative (Negative); NITRITE Negative (Negative); PH 6.5 (4.5-8.0); SPECIFIC GRAVITY 1.025 (1.001-1.030); UROBILINOGEN 0.2 E.U./dl (0.0-1.0)
[2023-11-18 20:48] LABS: MUCOUS 1+; WBC 0-2 wbc/hpf (0-5)
== END 2023-11-18 21:15 | disposition home or self-care (01) ==
LOC: ED 19:04
PROVIDERS: Physician Assistant Medical
DX: R21 Rash and other nonspecific skin eruption (principal); K21.9 Gastro-esophageal reflux disease without esophagitis; J45.909 Unspecified asthma, uncomplicated; Z88.5 Allergy status to narcotic agent; Z90.89 Acquired absence of other organs; Z98.890 Other specified postprocedural states

== ENCOUNTER 2023-11-21 20:58 | Emergency (ER) | payer OTHER ==
[~2023-11-21] VITALS: Ht 160 cm; Wt 105.2 kg
[2023-11-21 21:11] VITALS: BP 116/80
[2023-11-21] MEDS ORDERED: CEPHALEXIN500 M1 PO (21:38)
[2023-11-21] MEDS ORDERED: CEPHALEXIN 500 MG CAP PO ONE (21:45)
== END 2023-11-21 21:47 | disposition home or self-care (01) ==
LOC: ED 20:58
DX: L23.7 Allergic contact dermatitis due to plants, except food (principal); L03.116 Cellulitis of left lower limb; Z88.5 Allergy status to narcotic agent; K21.9 Gastro-esophageal reflux disease without esophagitis; J45.909 Unspecified asthma, uncomplicated; Z90.89 Acquired absence of other organs; Z98.890 Other specified postprocedural states

== ENCOUNTER 2024-01-09 14:14 | Emergency (ER) | payer OTHER ==
[~2024-01-09] VITALS: Ht 160 cm; Wt 110.2 kg
[2024-01-09 14:30] VITALS: BP 138/92
[2024-01-09] MEDS ORDERED: Acetaminophen/Hydrocodone 5 MG/325 MG TABLET PO ONE (14:35)
[2024-01-09] MEDS ORDERED: Ondansetron Hydrochloride 4 MG TAB PO ONE (14:55)
== END 2024-01-09 15:14 | disposition home or self-care (01) ==
LOC: ED 14:14
DX: S93.401A Sprain of unspecified ligament of right ankle, initial encounter (principal); K21.9 Gastro-esophageal reflux disease without esophagitis; J45.909 Unspecified asthma, uncomplicated; Z88.5 Allergy status to narcotic agent; Z90.89 Acquired absence of other organs; Z98.890 Other specified postprocedural states; X50.1XXA Overexertion from prolonged static or awkward postures, initial encounter; Y93.01 Activity, walking, marching and hiking; Y92.009 Unspecified place in unspecified non-institutional (private) residence as the place of occurrence of the external cause; Y99.8 Other external cause status

== ENCOUNTER → 2024-01-14 | Outpatient (CLI) | payer OTHER | END | disposition home or self-care (01) | LOC: RAD 11:58 | PROVIDERS: ATTEND Family Medicine | DX: M79.671 Pain in right foot (principal); M79.672 Pain in left foot ==

== ENCOUNTER 2024-04-05 11:05 | Emergency (ER) | payer OTHER ==
[~2024-04-05] VITALS: Ht 1615 cm; Wt 107.0 kg
[2024-04-05] MEDS ORDERED: HYDROCHLOROTH12.5 M2 PO (11:09)
[2024-04-05 11:12] VITALS: BP 137/77
[2024-04-05] MEDS ORDERED: AVPAK AZITHROM250 M1 PO (12:28)
[2024-04-05] MEDS ORDERED: AZITHROMYCIN 250 MG TAB PO ONE (12:30)
== END 2024-04-05 12:39 | disposition home or self-care (01) ==
LOC: ED 11:05
DX: J45.909 Unspecified asthma, uncomplicated (principal); Z20.822 Contact with and (suspected) exposure to COVID-19; K21.9 Gastro-esophageal reflux disease without esophagitis; Z88.5 Allergy status to narcotic agent; Z90.89 Acquired absence of other organs; Z98.890 Other specified postprocedural states

== ENCOUNTER 2024-04-25 08:36 | Emergency (ER) | payer OTHER ==
[~2024-04-25] VITALS: Ht 160 cm; Wt 106.6 kg
[~2024-04-25 08:36] MED LIST changes: +AVPAK AZITHROM250 M1 PO; +HYDROCHLOROTH12.5 M2 PO
[2024-04-25 08:45] VITALS: BP 125/95
[2024-04-25] MEDS ORDERED: predniSONE 20 MG TAB PO ONE (09:35)
[2024-04-25] MEDS ORDERED: PREDNISONE20 M1 PO (09:37)
[2024-04-25] MEDS ORDERED: TRIAMCINOLONE430 GM TD (09:37)
== END 2024-04-25 09:40 | disposition home or self-care (01) ==
LOC: ED 08:36
DX: L25.9 Unspecified contact dermatitis, unspecified cause (principal); Z88.5 Allergy status to narcotic agent; Z79.899 Other long term (current) drug therapy; Z96.22 Myringotomy tube(s) status

== ENCOUNTER → 2024-07-27 | Outpatient (CLI) | payer OTHER ==
[~2024-07-27] MED LIST changes: +TRIAMCINOLONE430 GM TD
[2024-07-27 11:05] LABS: BASO % 0.4 % (0.0-1.0); EOS # 0.2 10*3/uL (0.0-0.4); EOS % 1.7 % (1.0-4.0); HEMATOCRIT 45.3 % (37.0-47.0); MEAN CORPUSCULAR HGB 27.2 pg (27.0-31.0); MONO # 0.6 10*3/uL (0.1-1.0); NEUT # 5.1 10*3/uL (2.3-7.9); NEUT % 55.4 % (47.0-73.0); PLATELET COUNT AUTOMATED 319 10*3/uL (130-400); RED BLOOD COUNT 5.33 10*6/uL (4.10-5.10); RED CELL DISTRI WIDTH 13.1 % (0-14.5); WHITE BLOOD COUNT 9.2 10*3/uL (4.8-10.8)
[2024-07-27 11:18] LABS: BILIRUBIN Negative (Negative); BLOOD 2+ (Negative); CLARITY Clear (Clear); COLOR Yellow (Yellow); GLUCOSE Negative (Negative); KETONE Negative (Negative); LEUKO ESTERASE Negative (Negative); NITRITE Negative (Negative); PH 5.5 (4.5-8.0); SPECIFIC GRAVITY 1.025 (1.001-1.030); UROBILINOGEN 0.2 E.U./dl (0.0-1.0)
[2024-07-27 11:44] LABS: BACTERIA 2+; WBC 0-2 wbc/hpf (0-5)
[2024-07-27 11:48] LABS: ALKALINE PHOSPHATASE 83 U/L (46-116); BUN 14 mg/dl (9-23); CHLORIDE 103 mmol/L (98-107); CHOLESTEROL 229 mg/dL (<200); GAMMA GLUTAMYL TRANSPEPTIDASE 21 U/L (0-73); LDL CHOLESTEROL 137 mg/dL (9-159); POTASSIUM 3.5 mmol/L (3.4-5.1); SGPT/ALT 26 U/L (5-49); T3 UPTAKE 24.7 % (22.4-36.7); THYROXINE (T4) TOTAL 7.3 ug/dl (4.5-10.9); TOTAL PROTEIN 7.3 gm/dL (6.0-8.0); TRIGLYCERIDES 210 mg/dl (<150)
[2024-07-27 12:22] LABS: VITAMIN D, 25-HYDROXY 37.8 ng/mL (30-100)
== END | disposition home or self-care (01) ==
LOC: LAB 10:41
PROVIDERS: ATTEND Family Medicine
DX: R53.83 Other fatigue (principal); R79.89 Other specified abnormal findings of blood chemistry; E78.5 Hyperlipidemia, unspecified; R74.8 Abnormal levels of other serum enzymes; E55.9 Vitamin D deficiency, unspecified

== ENCOUNTER → 2024-07-29 | Outpatient (CLI) | payer OTHER | END | disposition home or self-care (01) | LOC: US 02:32 | PROVIDERS: ATTEND Obstetrics & Gynecology | DX: N93.9 Abnormal uterine and vaginal bleeding, unspecified (principal); R10.2 Pelvic and perineal pain ==

== ENCOUNTER 2024-09-10 11:55 | Emergency (ER) | payer OTHER ==
[~2024-09-10] VITALS: Ht 160 cm; Wt 109.3 kg
[2024-09-10 12:09] VITALS: BP 125/99
[2024-09-10] MEDS ORDERED: Ketorolac Tromethamine 15 MG/ML VIAL IV ONE (12:20)
[2024-09-10] MEDS ORDERED: SODIUM CHLORIDE 0.9% 1,000 ML IV ONE (12:20)
[2024-09-10] MEDS ORDERED: fentaNYL CITRATE/PF 50 MCG/ML SYRINGE IV ONE (12:20)
[2024-09-10] MEDS ORDERED: Ondansetron Hydrochloride 4 MG/2 ML VIAL IV ONE (12:20)
[2024-09-10] MEDS ORDERED: METFORMIN HYDR500 MG PO (12:47)
[2024-09-10 12:48] LABS: BASO % 0.3 % (0.0-1.0); BILIRUBIN Negative (Negative); BLOOD Negative (Negative); CLARITY Clear (Clear); COLOR Yellow (Yellow); EOS # 0.2 10*3/uL (0.0-0.4); EOS % 3.5 % (1.0-4.0); GLUCOSE Negative (Negative); HEMATOCRIT 42.5 % (37.0-47.0); KETONE Trace (Negative); LEUKO ESTERASE 1+ (Negative); MEAN CELL VOLUME 84.5 fl (81.0-99.0); MEAN CORPUSCULAR HGB 27.4 pg (27.0-31.0); MEAN CORPUSCULAR HGB CONC 32.5 g/dl (33.0-37.0); MEAN PLATELET VOLUME 9.2 fl (9.6-12.3); MONO # 0.5 10*3/uL (0.1-1.0); MONO % 7.6 % (3.0-9.0); NEUT # 2.9 10*3/uL (2.3-7.9); NEUT % 48.4 % (47.0-73.0); NITRITE Negative (Negative); PLATELET COUNT AUTOMATED 271 10*3/uL (130-400); RED BLOOD COUNT 5.03 10*6/uL (4.10-5.10); RED CELL DISTRI WIDTH 13.8 % (0-14.5); WHITE BLOOD COUNT 5.9 10*3/uL (4.8-10.8)
[2024-09-10] MEDS ORDERED: NORETHINDRONE AC5 MG PO (12:48)
[2024-09-10 13:06] LABS: BACTERIA 2+; EPITHELIAL CELLS 16-20
[2024-09-10 13:12] LABS: BUN 10 mg/dl (9-23); CHLORIDE 106 mmol/L (98-107); POTASSIUM 4.2 mmol/L (3.4-5.1)
[2024-09-10] MEDS ORDERED: CIPRO500 MG PO (13:53)
[2024-09-10] MEDS ORDERED: Ciprofloxacin Hydrochloride 500 MG TAB PO ONE (14:05)
== END 2024-09-10 14:10 | disposition home or self-care (01) ==
LOC: ED 11:55
PROVIDERS: Emergency Medicine
DX: R10.30 Lower abdominal pain, unspecified (principal); R11.2 Nausea with vomiting, unspecified; K21.9 Gastro-esophageal reflux disease without esophagitis; F32.A Depression, unspecified; F41.9 Anxiety disorder, unspecified; Z88.5 Allergy status to narcotic agent; Z79.899 Other long term (current) drug therapy; Z79.84 Long term (current) use of oral hypoglycemic drugs; Z90.89 Acquired absence of other organs; Z96.22 Myringotomy tube(s) status

== ENCOUNTER 2024-09-19 21:33 | Emergency (ER) | payer OTHER ==
[~2024-09-19] VITALS: Ht 160 cm; Wt 108.4 kg
[~2024-09-19 21:33] MED LIST changes: +METFORMIN HYDR500 MG PO; +NORETHINDRONE AC5 MG PO
[2024-09-19 21:45] VITALS: BP 114/76
[2024-09-19] MEDS ORDERED: Ketorolac Tromethamine 30 MG/ML VIAL IM ONE (21:55)
[2024-09-19 22:02] LABS: BILIRUBIN Negative (Negative); BLOOD 3+ (Negative); CLARITY Cloudy (Clear); COLOR Orange (Yellow); GLUCOSE Negative (Negative); KETONE Trace (Negative); LEUKO ESTERASE Trace (Negative); NITRITE Negative (Negative); PH 5.5 (4.5-8.0); SPECIFIC GRAVITY 1.025 (1.001-1.030)
[2024-09-19 22:09] LABS: BACTERIA 1+; RBC TNTC rbc/hpf (0-2)
[2024-09-19 22:09] LABS: BASO # 0.1 10*3/uL (0.0-0.1); BASO % 0.9 % (0.0-1.0); EOS # 0.3 10*3/uL (0.0-0.4); EOS % 3.8 % (1.0-4.0); HEMATOCRIT 46.2 % (37.0-47.0); MEAN CELL VOLUME 85.6 fl (81.0-99.0); MEAN CORPUSCULAR HGB 27.4 pg (27.0-31.0); MONO # 0.8 10*3/uL (0.1-1.0); MONO % 8.5 % (3.0-9.0); NEUT # 4.5 10*3/uL (2.3-7.9); PLATELET COUNT AUTOMATED 306 10*3/uL (130-400); RED CELL DISTRI WIDTH 13.3 % (0-14.5)
[2024-09-19 22:27] LABS: BUN 15 mg/dl (9-23); CHLORIDE 105 mmol/L (98-107); POTASSIUM 3.5 mmol/L (3.4-5.1)
[2024-09-19 22:32] LABS: BETA-HCG, QUANT < 3.0 mIU/mL (3-10)
== END 2024-09-19 22:44 | disposition home or self-care (01) ==
LOC: ED 21:33
PROVIDERS: Physician Assistant Medical
DX: N94.6 Dysmenorrhea, unspecified (principal); Z88.5 Allergy status to narcotic agent; Z79.899 Other long term (current) drug therapy; Z79.84 Long term (current) use of oral hypoglycemic drugs; Z96.22 Myringotomy tube(s) status; Z90.89 Acquired absence of other organs

== ENCOUNTER 2024-12-13 18:08 | Emergency (ER) | payer OTHER ==
[~2024-12-13] VITALS: Ht 160 cm; Wt 112.0 kg
[2024-12-13 18:36] VITALS: BP 135/93
[2024-12-13] MEDS ORDERED: KENALOG 0.1%80 GM T (19:17)
[2024-12-13] MEDS ORDERED: Water, Sterile 10 ML VIAL ONE (19:55)
== END 2024-12-13 19:32 | disposition home or self-care (01) ==
LOC: ED 18:08
DX: L25.9 Unspecified contact dermatitis, unspecified cause (principal); K21.9 Gastro-esophageal reflux disease without esophagitis; J45.909 Unspecified asthma, uncomplicated; G89.29 Other chronic pain; F32.A Depression, unspecified; Z88.5 Allergy status to narcotic agent; Z79.899 Other long term (current) drug therapy; Z79.84 Long term (current) use of oral hypoglycemic drugs; Z87.42 Personal history of other diseases of the female genital tract

== ENCOUNTER → 2025-01-04 | Outpatient (CLI) | payer OTHER ==
[~2025-01-04] MED LIST changes: +KENALOG 0.1%80 GM T
[2025-01-04 14:00] LABS: MEAN CELL VOLUME 83.0 fl (81.0-99.0); MEAN CORPUSCULAR HGB 28.0 pg (27.0-31.0); MEAN PLATELET VOLUME 9.1 fl (9.6-12.3); NUCLEATED RED BLOOD CELL 0.0 % (0.0-0.0); NUCLEATED RED BLOOD CELL 0.0 10*3/uL (0.0-0.0); PLATELET COUNT AUTOMATED 293 10*3/uL (130-400); RED CELL DISTRI WIDTH 13.4 % (0-14.5); RETICULOCYTE % 1.75 % (0.50-2.50)
[2025-01-04 14:05] LABS: BILIRUBIN Negative (Negative); BLOOD Trace-Intact (Negative); CLARITY Cloudy (Clear); COLOR Yellow (Yellow); KETONE Trace (Negative); LEUKO ESTERASE 3+ (Negative); NITRITE Negative (Negative); PH 5.5 (4.5-8.0); SPECIFIC GRAVITY 1.025 (1.001-1.030); UROBILINOGEN 1.0 E.U./dl (0.0-1.0)
[2025-01-04 14:12] LABS: EPITHELIAL CELLS 16-20; MUCOUS 1+; WBC 31-40 wbc/hpf (0-5)
[2025-01-04 14:13] LABS: BACTERIA 2+
[2025-01-04 14:35] LABS: BUN 9 mg/dl (9-23); GAMMA GLUTAMYL TRANSFERASE 18 U/L (0-38); LDL CHOLESTEROL 119 mg/dL (9-159); SGPT/ALT 18 U/L (5-49); T3 UPTAKE 23.7 % (22.4-36.7); THYROXINE (T4) TOTAL 6.5 ug/dl (4.5-10.9)
[2025-01-04 14:36] LABS: VITAMIN D, 25-HYDROXY 51.1 ng/mL (30-100)
[2025-01-04 16:26] LABS: PLATELET SUFFICIENCY NORMAL (NORMAL)
[2025-01-05 16:08] LABS: A/G RATIO 1.2 (0.7-1.7); BETA GLOBULIN 1.1 g/dL (0.7-1.3); GLOBULIN, TOTAL 3.1 g/dL (2.2-3.9)
== END | disposition home or self-care (01) ==
LOC: LAB 13:31
PROVIDERS: ATTEND Family Medicine
DX: E78.5 Hyperlipidemia, unspecified (principal); E55.9 Vitamin D deficiency, unspecified; R79.89 Other specified abnormal findings of blood chemistry; R53.83 Other fatigue

== ENCOUNTER 2025-02-04 12:47 | Emergency (ER) | payer OTHER ==
[~2025-02-04] VITALS: Ht 160 cm; Wt 106.6 kg
[2025-02-04 13:03] VITALS: BP 123/87
[2025-02-04] MEDS ORDERED: METHOCARBAMOL 750 MG TAB PO ONE (15:25)
[2025-02-04 15:37] LABS: BASO # 0.0 10*3/uL (0.0-0.1); BASO % 0.3 % (0.0-1.0); EOS # 0.2 10*3/uL (0.0-0.4); EOS % 2.6 % (1.0-4.0); MEAN CELL VOLUME 86.5 fl (81.0-99.0); MEAN CORPUSCULAR HGB 27.9 pg (27.0-31.0); MEAN PLATELET VOLUME 9.0 fl (9.6-12.3); MONO # 0.5 10*3/uL (0.1-1.0); MONO % 7.1 % (3.0-9.0); NEUT # 3.8 10*3/uL (2.3-7.9); NEUT % 55.2 % (47.0-73.0); NUCLEATED RED BLOOD CELL 0.0 % (0.0-0.0); NUCLEATED RED BLOOD CELL 0.0 10*3/uL (0.0-0.0); PLATELET COUNT AUTOMATED 288 10*3/uL (130-400); RED CELL DISTRI WIDTH 13.2 % (0-14.5)
[2025-02-04] MEDS ORDERED: METHOCARBAMOL750 M1 PO (16:37)
== END 2025-02-04 17:00 | disposition home or self-care (01) ==
LOC: ED 12:47
PROVIDERS: Emergency Medicine
DX: S30.0XXA Contusion of lower back and pelvis, initial encounter (principal); M62.830 Muscle spasm of back; J45.909 Unspecified asthma, uncomplicated; K21.9 Gastro-esophageal reflux disease without esophagitis; Z79.899 Other long term (current) drug therapy; Z88.5 Allergy status to narcotic agent; Z90.89 Acquired absence of other organs; Z98.890 Other specified postprocedural states; X58.XXXA Exposure to other specified factors, initial encounter; Y93.89 Activity, other specified; Y92.89 Other specified places as the place of occurrence of the external cause; Y99.8 Other external cause status

== ENCOUNTER 2025-02-12 13:56 | Emergency (ER) | payer OTHER ==
[~2025-02-12] VITALS: Ht 160 cm; Wt 112.9 kg
[~2025-02-12 13:56] MED LIST changes: +METHOCARBAMOL750 M1 PO
[2025-02-12 14:09] VITALS: BP 148/98
[2025-02-12] MEDS ORDERED: Amoxicillin/Clavulanate Pota 875 MG TAB PO ONE (14:20)
[2025-02-12] MEDS ORDERED: AMOX-CLAV 875-1 EACH PO (14:32)
== END 2025-02-12 15:30 | disposition home or self-care (01) ==
LOC: ED 13:56
DX: O26.891 Other specified pregnancy related conditions, first trimester (principal); J02.0 Streptococcal pharyngitis; Z90.89 Acquired absence of other organs; Z88.5 Allergy status to narcotic agent; Z3A.01 Less than 8 weeks gestation of pregnancy

== ENCOUNTER 2025-02-18 12:58 | Emergency (ER) | payer OTHER ==
[~2025-02-18] VITALS: Ht 160 cm; Wt 113.4 kg
[~2025-02-18 12:58] MED LIST changes: +AMOX-CLAV 875-1 EACH PO
[2025-02-18 13:09] VITALS: BP 140/94
[2025-02-18] MEDS ORDERED: Ondansetron Hydrochloride 4 MG/2 ML VIAL IV ONE (13:40)
[2025-02-18] MEDS ORDERED: SODIUM CHLORIDE 0.9% 1,000 ML IV ONE (13:40)
[2025-02-18 14:00] LABS: BILIRUBIN Negative (Negative); BLOOD 1+ (Negative); CLARITY Clear (Clear); COLOR Yellow (Yellow); KETONE Negative (Negative); LEUKO ESTERASE Negative (Negative); NITRITE Negative (Negative); PH 7.0 (4.5-8.0); SPECIFIC GRAVITY <= 1.005 (1.001-1.030); UROBILINOGEN 0.2 E.U./dl (0.0-1.0)
[2025-02-18 14:07] LABS: BACTERIA TRACE; MUCOUS TRACE; RBC 16-20 rbc/hpf (0-2); WBC 0-2 wbc/hpf (0-5); YEAST TRACE
[2025-02-18 14:09] LABS: BASO # 0.0 10*3/uL (0.0-0.1); BASO % 0.4 % (0.0-1.0); EOS # 0.1 10*3/uL (0.0-0.4); EOS % 1.9 % (1.0-4.0); MEAN CELL VOLUME 87.8 fl (81.0-99.0); MEAN CORPUSCULAR HGB 27.8 pg (27.0-31.0); MEAN PLATELET VOLUME 8.8 fl (9.6-12.3); MONO # 0.5 10*3/uL (0.1-1.0); MONO % 6.7 % (3.0-9.0); NEUT # 4.0 10*3/uL (2.3-7.9); NEUT % 58.8 % (47.0-73.0); NUCLEATED RED BLOOD CELL 0.0 % (0.0-0.0); NUCLEATED RED BLOOD CELL 0.0 10*3/uL (0.0-0.0); PLATELET COUNT AUTOMATED 211 10*3/uL (130-400); RED CELL DISTRI WIDTH 13.6 % (0-14.5)
[2025-02-18 14:39] LABS: BUN 5 mg/dl (9-23)
[2025-02-18 14:41] LABS: B-hCG (QUALITATIVE) POSITIVE (NEGATIVE)
== END 2025-02-18 17:12 | disposition home or self-care (01) ==
LOC: ED 12:58
PROVIDERS: Nurse Practitioner Family
DX: O99.891 Other specified diseases and conditions complicating pregnancy (principal); R42 Dizziness and giddiness; H53.8 Other visual disturbances; Z88.5 Allergy status to narcotic agent; Z90.89 Acquired absence of other organs; Z96.22 Myringotomy tube(s) status; Z3A.00 Weeks of gestation of pregnancy not specified

== ENCOUNTER 2025-02-27 12:27 | Emergency (ER) | payer OTHER ==
[~2025-02-27] VITALS: Ht 160 cm; Wt 112.5 kg
[2025-02-27 12:34] VITALS: BP 130/91
[2025-02-27] MEDS ORDERED: Metoclopramide Hydrochloride 10 MG/2 ML VIAL IV ONE (12:45)
[2025-02-27] MEDS ORDERED: diphenhydrAMINE hydrochloride 50 MG/ML VIAL IV ONE (12:45)
[2025-02-27] MEDS ORDERED: SODIUM CHLORIDE 0.9% 1,000 ML IV ONE (12:45)
[2025-02-27 12:55] LABS: BILIRUBIN Negative (Negative); BLOOD Negative (Negative); CLARITY Cloudy (Clear); COLOR Yellow (Yellow); KETONE Negative (Negative); LEUKO ESTERASE 1+ (Negative); NITRITE Negative (Negative); PH 8.0 (4.5-8.0); SPECIFIC GRAVITY 1.015 (1.001-1.030); UROBILINOGEN 0.2 E.U./dl (0.0-1.0)
[2025-02-27 12:56] LABS: BASO # 0.0 10*3/uL (0.0-0.1); BASO % 0.2 % (0.0-1.0); EOS # 0.1 10*3/uL (0.0-0.4); EOS % 1.5 % (1.0-4.0); MEAN CELL VOLUME 86.1 fl (81.0-99.0); MEAN CORPUSCULAR HGB 28.0 pg (27.0-31.0); MEAN PLATELET VOLUME 8.9 fl (9.6-12.3); MONO # 0.5 10*3/uL (0.1-1.0); MONO % 5.7 % (3.0-9.0); NEUT # 5.6 10*3/uL (2.3-7.9); NEUT % 68.9 % (47.0-73.0); NUCLEATED RED BLOOD CELL 0.0 % (0.0-0.0); NUCLEATED RED BLOOD CELL 0.0 10*3/uL (0.0-0.0); PLATELET COUNT AUTOMATED 237 10*3/uL (130-400); RED CELL DISTRI WIDTH 13.2 % (0-14.5)
[2025-02-27 13:08] LABS: BACTERIA 3+; EPITHELIAL CELLS 16-20
[2025-02-27 13:17] LABS: BUN 7 mg/dl (9-23); SGPT/ALT 13 U/L (5-49)
[2025-02-27] MEDS ORDERED: MG-AL HYDROXIDE/SIMETICONE 30 ML UDC PO STA (14:16)
[2025-02-27] MEDS ORDERED: REGLAN10 M1 PO (14:21)
== END 2025-02-27 14:25 | disposition home or self-care (01) ==
LOC: ED 12:27
PROVIDERS: Nurse Practitioner
DX: O21.8 Other vomiting complicating pregnancy (principal); O26.891 Other specified pregnancy related conditions, first trimester; R53.1 Weakness; Z90.89 Acquired absence of other organs; Z88.5 Allergy status to narcotic agent; Z3A.01 Less than 8 weeks gestation of pregnancy

== ENCOUNTER 2025-03-11 16:11 | Emergency (ER) | payer OTHER ==
[~2025-03-11] VITALS: Ht 157.4 cm; Wt 110.2 kg
[~2025-03-11 16:11] MED LIST changes: +REGLAN10 M1 PO
[2025-03-11 16:44] VITALS: BP 151/89
[2025-03-11] MEDS ORDERED: Ondansetron4 MG PO (16:46)
[2025-03-11] MEDS ORDERED: NITROFURANTOIN100 M9 PO (16:46)
[2025-03-11] MEDS ORDERED: LIDOCAINE 5% ANORECTAL CREAM R PRN (18:05)
[2025-03-11] MEDS ORDERED: COLACE100 MG PO (20:22)
[2025-03-11] MEDS ORDERED: MIRALAX POWDER17 G1 PO (20:22)
== END 2025-03-11 20:32 | disposition home or self-care (01) ==
LOC: ED 16:11
DX: O99.341 Other mental disorders complicating pregnancy, first trimester (principal); K56.41 Fecal impaction; K21.9 Gastro-esophageal reflux disease without esophagitis; O99.511 Diseases of the respiratory system complicating pregnancy, first trimester; J45.909 Unspecified asthma, uncomplicated; Z88.5 Allergy status to narcotic agent; Z3A.01 Less than 8 weeks gestation of pregnancy

== ENCOUNTER 2025-03-25 12:54 | Emergency (ER) | payer OTHER ==
[~2025-03-25] VITALS: Ht 160 cm; Wt 110.2 kg
[~2025-03-25 12:54] MED LIST changes: +MIRALAX POWDER17 G1 PO; +NITROFURANTOIN100 M9 PO; +Ondansetron4 MG PO
[2025-03-25] MEDS ORDERED: diphenhydrAMINE hydrochloride 50 MG/ML VIAL IV ONE (13:20)
[2025-03-25] MEDS ORDERED: ACETAMINOPHEN 325 MG TAB PO ONE (13:20)
[2025-03-25] MEDS ORDERED: SODIUM CHLORIDE 0.9% 1,000 ML IV ONE (13:20)
[2025-03-25 13:38] LABS: BASO # 0.0 10*3/uL (0.0-0.1); BASO % 0.3 % (0.0-1.0); EOS # 0.1 10*3/uL (0.0-0.4); EOS % 1.0 % (1.0-4.0); MEAN CELL VOLUME 84.7 fl (81.0-99.0); MEAN CORPUSCULAR HGB 28.2 pg (27.0-31.0); MEAN PLATELET VOLUME 9.1 fl (9.6-12.3); MONO # 0.4 10*3/uL (0.1-1.0); MONO % 5.6 % (3.0-9.0); NEUT # 4.8 10*3/uL (2.3-7.9); NEUT % 69.8 % (47.0-73.0); NUCLEATED RED BLOOD CELL 0.0 % (0.0-0.0); NUCLEATED RED BLOOD CELL 0.0 10*3/uL (0.0-0.0); PLATELET COUNT AUTOMATED 232 10*3/uL (130-400); RED CELL DISTRI WIDTH 13.4 % (0-14.5)
[2025-03-25 13:57] LABS: BILIRUBIN Negative (Negative); BLOOD Negative (Negative); CLARITY Turbid (Clear); COLOR Yellow (Yellow); KETONE Trace (Negative); LEUKO ESTERASE Trace (Negative); NITRITE Negative (Negative); PH 7.5 (4.5-8.0); SPECIFIC GRAVITY 1.025 (1.001-1.030); UROBILINOGEN 0.2 E.U./dl (0.0-1.0)
[2025-03-25 14:11] LABS: BUN 5 mg/dl (9-23)
[2025-03-25 14:16] LABS: BACTERIA 1+; EPITHELIAL CELLS 16-20
[2025-03-25 15:02] VITALS: BP 132/74
== END 2025-03-25 15:36 | disposition home or self-care (01) ==
LOC: ED 12:54
PROVIDERS: Nurse Practitioner Family
DX: O26.891 Other specified pregnancy related conditions, first trimester (principal); R51.9 Headache, unspecified; R11.0 Nausea; Z88.5 Allergy status to narcotic agent; Z79.899 Other long term (current) drug therapy; Z90.89 Acquired absence of other organs; Z3A.10 10 weeks gestation of pregnancy

== ENCOUNTER 2025-05-21 10:36 | Emergency (ER) | payer OTHER ==
[~2025-05-21] VITALS: Ht 157.4 cm; Wt 111.1 kg
[2025-05-21] MEDS ORDERED: diphenhydrAMINE hydrochloride 50 MG/ML VIAL IV ONE (10:40)
[2025-05-21] MEDS ORDERED: Metoclopramide Hydrochloride 10 MG/2 ML VIAL IV ONE (10:40)
[2025-05-21] MEDS ORDERED: SODIUM CHLORIDE 0.9% 1,000 ML IV ONE ×2 (10:45→14:40)
[2025-05-21] MEDS ORDERED: Ondansetron Hydrochloride 4 MG/2 ML VIAL IV ONE (10:45)
[2025-05-21 10:59] LABS: BASO # 0.0 10*3/uL (0.0-0.1); BASO % 0.1 % (0.0-1.0); EOS # 0.0 10*3/uL (0.0-0.4); EOS % 0.1 % (1.0-4.0); MEAN CELL VOLUME 83.7 fl (81.0-99.0); MEAN CORPUSCULAR HGB 28.0 pg (27.0-31.0); MEAN PLATELET VOLUME 9.0 fl (9.6-12.3); MONO # 0.6 10*3/uL (0.1-1.0); MONO % 4.7 % (3.0-9.0); NEUT # 10.5 10*3/uL (2.3-7.9); NEUT % 87.6 % (47.0-73.0); NUCLEATED RED BLOOD CELL 0.0 % (0.0-0.0); NUCLEATED RED BLOOD CELL 0.0 10*3/uL (0.0-0.0); PLATELET COUNT AUTOMATED 250 10*3/uL (130-400); RED CELL DISTRI WIDTH 13.5 % (0-14.5)
[2025-05-21 11:20] LABS: BUN 8 mg/dl (9-23); SGPT/ALT 23 U/L (5-49)
[2025-05-21 11:31] LABS: BILIRUBIN Negative (Negative); BLOOD Negative (Negative); CLARITY Cloudy (Clear); COLOR Dark Yellow (Yellow); KETONE 3+ (Negative); LEUKO ESTERASE Negative (Negative); NITRITE Negative (Negative); PH 5.5 (4.5-8.0); SPECIFIC GRAVITY >= 1.030 (1.001-1.030); UROBILINOGEN 1.0 E.U./dl (0.0-1.0)
[2025-05-21 11:39] LABS: BACTERIA 3+; CALCIUM OXALATE CRYSTALS 1+; EPITHELIAL CELLS 21-30; MUCOUS 1+; RBC 0-2 rbc/hpf (0-2)
[2025-05-21] MEDS ORDERED: ACETAMINOPHEN 100 ML IV ONE (13:25)
[2025-05-21 19:18] VITALS: BP 136/94
== END 2025-05-21 19:58 | disposition short-term general hospital (02) ==
LOC: ED 10:36
PROVIDERS: Emergency Medicine
DX: O26.892 Other specified pregnancy related conditions, second trimester (principal); N13.9 Obstructive and reflux uropathy, unspecified; N13.30 Unspecified hydronephrosis; K21.9 Gastro-esophageal reflux disease without esophagitis; J45.909 Unspecified asthma, uncomplicated; Z88.5 Allergy status to narcotic agent; Z90.89 Acquired absence of other organs; Z3A.18 18 weeks gestation of pregnancy

== ENCOUNTER 2025-05-24 15:20 | Emergency (ER) | payer OTHER ==
[~2025-05-24] VITALS: Ht 157.4 cm; Wt 111.1 kg
[2025-05-24 15:28] VITALS: BP 139/92
[2025-05-24] MEDS ORDERED: diphenhydrAMINE hydrochloride 50 MG/ML VIAL IV ONE (16:00)
[2025-05-24] MEDS ORDERED: ACETAMINOPHEN 325 MG TAB PO ONE (16:00)
[2025-05-24] MEDS ORDERED: Metoclopramide Hydrochloride 10 MG/2 ML VIAL IV ONE (16:00)
[2025-05-24] MEDS ORDERED: SODIUM CHLORIDE 0.9% 1,000 ML IV ONE (16:00)
[2025-05-24 16:20] LABS: BASO # 0.0 10*3/uL (0.0-0.1); BASO % 0.2 % (0.0-1.0); EOS # 0.1 10*3/uL (0.0-0.4); EOS % 1.4 % (1.0-4.0); MEAN CELL VOLUME 84.0 fl (81.0-99.0); MEAN CORPUSCULAR HGB 27.9 pg (27.0-31.0); MEAN PLATELET VOLUME 8.8 fl (9.6-12.3); MONO # 0.5 10*3/uL (0.1-1.0); MONO % 7.4 % (3.0-9.0); NEUT # 4.7 10*3/uL (2.3-7.9); NEUT % 70.0 % (47.0-73.0); NUCLEATED RED BLOOD CELL 0.0 % (0.0-0.0); NUCLEATED RED BLOOD CELL 0.0 10*3/uL (0.0-0.0); PLATELET COUNT AUTOMATED 228 10*3/uL (130-400); RED CELL DISTRI WIDTH 13.7 % (0-14.5)
[2025-05-24 16:40] LABS: BUN 5 mg/dl (9-23); SGPT/ALT 14 U/L (5-49)
[2025-05-24] MEDS ORDERED: MAGNESIUM SULFATE 50 ML IV ONE (17:05)
[2025-05-24] MEDS ORDERED: Phenergan25 MG PO (19:27)
[2025-05-24] MEDS ORDERED: ANUSOL-HC25 MG R (19:27)
[2025-05-24] MEDS ORDERED: ANUSOL HC30 GM PO (19:27)
== END 2025-05-24 19:46 | disposition home or self-care (01) ==
LOC: ED 15:20
PROVIDERS: Nurse Practitioner Family
DX: O99.282 Endocrine, nutritional and metabolic diseases complicating pregnancy, second trimester (principal); E87.8 Other disorders of electrolyte and fluid balance, not elsewhere classified; O22.42 Hemorrhoids in pregnancy, second trimester; O99.612 Diseases of the digestive system complicating pregnancy, second trimester; R19.7 Diarrhea, unspecified; M79.601 Pain in right arm; M79.602 Pain in left arm; M79.604 Pain in right leg; M79.605 Pain in left leg; K21.9 Gastro-esophageal reflux disease without esophagitis; O99.512 Diseases of the respiratory system complicating pregnancy, second trimester; J45.909 Unspecified asthma, uncomplicated; Z88.5 Allergy status to narcotic agent; Z87.42 Personal history of other diseases of the female genital tract; Z90.89 Acquired absence of other organs; Z20.822 Contact with and (suspected) exposure to COVID-19; Z3A.18 18 weeks gestation of pregnancy